=== PATIENT | female | born 1985 | race Caucasian/White ===

== ENCOUNTER 2018-09-08 10:39 | Outpatient (CLI) | payer OTHER, SELFPAY ==
[2018-09-11 13:55] LABS: TB Interpretation Negative (NEGAT); TB1 Ag minus Nil 0.03 IU/mL; TB2 Ag minus Nil 0.01 IU/mL
== END 2018-09-08 10:59 ==
PROVIDERS: PCP Family Medicine; Visit Provider Family Medicine
DX: Z11.1 Encounter for screening for respiratory tuberculosis (principal)
CPT/HCPCS: 36415; 86480

== ENCOUNTER 2020-01-01 16:58 | Outpatient (REF) | payer OTHER, SELFPAY ==
[2020-01-03 15:50] LABS: COVID-19 RT-PCR UVMMC Result Negative (Negative)
== END 2020-01-01 17:18 ==
LOC: NCHCN 16:58
PROVIDERS: PCP Family Medicine; Visit Provider Physician Assistant
DX: J02.9 Acute pharyngitis, unspecified (principal)
CPT/HCPCS: U0003

== ENCOUNTER 2020-03-07 16:40 | Outpatient (REF) | payer OTHER, SELFPAY ==
[2020-03-13 19:24] LABS: SARS-CoV-2 RNA Undetected (Undetected)
== END 2020-03-07 17:00 ==
LOC: NCHCN 16:40
PROVIDERS: PCP Family Medicine; Visit Provider Family Medicine
DX: Z20.828 Contact with and (suspected) exposure to other viral communicable diseases (principal)
CPT/HCPCS: U0003

== ENCOUNTER 2020-05-16 15:02 | Outpatient (REF) | payer OTHER, SELFPAY ==
[2020-05-19 02:13] LABS: Patient Race White; SARS-CoV-2 RNA Undetected (Undetected); SARS-CoV-2 Specimen Source Nasal
== END 2020-05-16 15:22 ==
LOC: NCHCN 15:02
PROVIDERS: PCP Family Medicine; Visit Provider Family Medicine
DX: Z20.828 Contact with and (suspected) exposure to other viral communicable diseases (principal)
CPT/HCPCS: U0003

== ENCOUNTER 2020-07-09 15:55 | Outpatient (REF) | payer OTHER, SELFPAY ==
[2020-07-11 15:17] LABS: SARS-CoV-2 RNA Source Nasal/Nares
[2020-07-11 15:19] LABS: SARS-CoV-2 RNA Not Detected (NotDetected)
== END 2020-07-09 16:15 ==
LOC: NCHCN 15:55
PROVIDERS: PCP Family Medicine; Visit Provider Nurse Practitioner Family
DX: Z20.828 Contact with and (suspected) exposure to other viral communicable diseases (principal)
CPT/HCPCS: U0003

== ENCOUNTER 2020-08-07 20:44 | Outpatient (REF) | payer SELFPAY ==
[2020-08-08 01:15] LABS: COVID-19 RT-PCR UVMMC Result Negative (Negative)
== END 2020-08-07 21:04 ==
LOC: NCHCN 20:44
PROVIDERS: PCP Family Medicine; Visit Provider Nurse Practitioner Family
DX: Z20.828 Contact with and (suspected) exposure to other viral communicable diseases (principal)
CPT/HCPCS: U0003

== ENCOUNTER 2020-08-24 07:25 | Outpatient (REF) | payer SELFPAY ==
[2020-08-24 20:45] LABS: COVID-19 RT-PCR UVMMC Result Negative (Negative)
== END 2020-08-24 07:45 ==
LOC: NCHCN 07:25
PROVIDERS: PCP Family Medicine; Visit Provider Nurse Practitioner Family
DX: Z20.828 Contact with and (suspected) exposure to other viral communicable diseases (principal)
CPT/HCPCS: U0003

== ENCOUNTER 2020-10-07 20:54 | Outpatient (REF) | payer SELFPAY ==
[2020-10-09 14:39] LABS: COVID-19 RT-PCR UVMMC Result Negative (Negative)
== END 2020-10-07 20:55 | disposition home or self-care (01) ==
LOC: NCHCN 20:54
PROVIDERS: PCP Family Medicine; Visit Provider Family Medicine
DX: Z20.822 Contact with and (suspected) exposure to COVID-19 (principal)
CPT/HCPCS: U0003

== ENCOUNTER 2023-06-16 10:20 | Outpatient (CLI) | payer OTHER, SELFPAY ==
[2023-06-16 13:32] LABS: HCT 37.4 % (36.0-46.0); HGB 12.4 g/dL (11.2-15.7); MCH 30.5 pg (27.0-33.0); MCHC 33.2 % (32.0-36.0); MCV 92 fL (80-95); MPV 9.8 fL (8.0-11.0); Platelet Count 192 10^3/uL (130-400); RBC 4.06 10^6/uL (3.93-5.22); RDW 12.4 % (11.7-14.6); RDW-SD 42.2 fL; WBC 4.88 10^3/uL (4.4-10.8)
[2023-06-16 15:19] LABS: ALT 22 U/L (14-59); AST 15 U/L (15-37); Albumin 4.1 g/dL (3.4-5.0); Alkaline Phosphatase 49 U/L (46-116); Anion Gap 11.5 mmol/L (3-11); BUN 13 mg/dL (7-18); Bilirubin, Total 0.4 mg/dL (0.2-1.0); CO2 24.5 mmol/L (21.0-32.0); CREATININE 0.7 mg/dL (0.55-1.02); Calcium 9.4 mg/dL (8.5-10.1); Calculated LDL 85 mg/dL (<100); Chloride 102 mmol/L (98-107); Cholesterol 193 mg/dL (<200); Estimated GFR 112.75 (mL/min/1.73m2); Glucose 92 mg/dL (74-106); HDL Cholesterol 98 mg/dL (40-60); Potassium 4.1 mmol/L (3.5-5.1); Sodium 138 mmol/L (136-145); TSH 1.22 uIU/mL (0.36-3.74); Total Protein 7.3 g/dL (6.4-8.2); Triglyceride 51 mg/dL (<150)
[2023-06-16 15:33] LABS: Vitamin D 25 Total 35.5 ng/mL (30-100)
[2023-06-17 10:34] LABS: Lyme Ab w Rflx to Lyme Confirm Negative (Negative)
[2023-06-21 11:48] LABS: TB Interpretation Negative (Negative); TB1 Ag minus Nil 0.01 IU/ml; TB2 Ag minus Nil 0.02 IU/mL
== END 2023-06-16 10:21 | disposition home or self-care (01) ==
LOC: LBO 10:32
PROVIDERS: PCP Family Medicine; Visit Provider Family Medicine
DX: Z11.1 Encounter for screening for respiratory tuberculosis (principal); R53.83 Other fatigue; E55.9 Vitamin D deficiency, unspecified; F33.0 Major depressive disorder, recurrent, mild; E78.5 Hyperlipidemia, unspecified
CPT/HCPCS: 36415; 80053; 80061; 82306; 85027; 84443; 86480; 86618

== ENCOUNTER → 2023-11-04 00:57 | Outpatient (CLI) | payer OTHER, SELFPAY ==
--- NOTE | 2023-11-04 | DI.MAMMO_ITS ---
Exam(s) MAMMO SCREENING EXAM: MAMMO SCREENING CLINICAL HISTORY: SCREENING MAMMO FOR BREAST CANCER Z12.31 TECHNIQUE: Bilateral full field digital CC and MLO mammographic images were obtained with 3D tomosyn thesis and utilizing computer aided detection (CAD). COMPARISON: This is a baseline examination. FINDINGS: Masses/Architectural Distortion: None seen. Microcalcifications: No suspicious pleomorphic-type are seen. Skin Thickening/Nipple Retraction: None. IMPRESSION: 1. No significant interval change with no specific features of malignancy noted. 2. Unless there is more urgent need, screening mammography is recommended, as per [employer] guidelines. BI-RADS Category 1 - Negative Breast Density - Category D - Extremely dense Breast density category C or D implies that the patient has dense breast tissue. Dense breast tissue is very common and is not abnormal but dense breast tissue can make it harder to find cancer on a ma mmogram. Also, dense breast tissue may increase their breast cancer risk. This information about the result of the mammogram report was provided to the patient to raise their awareness. Use this report when you speak with the patient about their risks for breast cancer, which includes their family hist ory. At that time, you may recommend for more screening tests (Ultrasound or MRI) as they might be us eful based on their risk. A negative radiographic report should not delay biopsy if a dominant or clinically suspicious mass is present. Up to ten percent of cancers are not identified on mammography. A negative report may reinforce clinical impression. Adenosis and dense breasts may obscure an underlying neoplasm. False positive reports average 6 to 10%. Patient will receive a letter notifying them of these results.
== END ==
PROVIDERS: PCP Family Medicine; Visit Provider Family Medicine
DX: Z12.31 Encounter for screening mammogram for malignant neoplasm of breast (principal)
CPT/HCPCS: 77063; 77067

== ENCOUNTER 2024-01-05 15:44 | Outpatient (CLI) | payer OTHER, SELFPAY ==
[2024-01-09 14:26] LABS: TB Interpretation Negative (Negative); TB1 Ag minus Nil 0.03 IU/ml; TB2 Ag minus Nil 0.02 IU/mL
== END 2024-01-05 15:45 | disposition home or self-care (01) ==
LOC: LBO 15:48
PROVIDERS: PCP Family Medicine; Visit Provider Family Medicine
DX: Z11.1 Encounter for screening for respiratory tuberculosis (principal)
CPT/HCPCS: 36415; 86480

== ENCOUNTER 2024-07-05 03:38 | Outpatient (CLI) | payer OTHER, SELFPAY ==
[2024-07-05 08:24] LABS: Abs Immature Grans 0.02 10^3/uL (0.0-0.06); Absolute Basophil Count 0.03 10^3/uL (0.0-0.2); Absolute Eosinophil Count 0.11 10^3/uL (0.0-0.7); Absolute Lymphocyte Count 1.99 10^3/uL (1.2-3.4); Absolute Monocyte Count 0.48 10^3/uL (0.1-0.8); Absolute Neutrophil Count 2.12 10^3/uL (1.2-6.7); Basophils % 0.6 %; Eosinophils % 2.3 %; HCT 37.4 % (36.0-46.0); HGB 12.3 g/dL (11.2-15.7); Immature Grans % 0.4 %; Lymphocytes % 41.9 %; MCH 30.9 pg (27.0-33.0); MCHC 32.9 % (32.0-36.0); MCV 94 fL (80-95); MPV 9.8 fL (8.0-11.0); Monocytes % 10.1 %; Neutrophils % 44.7 %; Platelet Count 181 10^3/uL (130-400); RBC 3.98 10^6/uL (3.93-5.22); RDW 12.5 % (11.7-14.6); RDW-SD 43.8 fL; WBC 4.75 10^3/uL (4.4-10.8)
[2024-07-05 09:11] LABS: ALT 16 U/L (14-59); AST 17 U/L (15-37); Albumin 3.9 g/dL (3.4-5.0); Alkaline Phosphatase 46 U/L (46-116); Anion Gap 7.3 mmol/L (3-11); BUN 9 mg/dL (7-18); Bilirubin, Total 0.67 mg/dL (0.2-1.0); CO2 27.7 mmol/L (21.0-32.0); Calcium 9.2 mg/dL (8.5-10.1); Calculated LDL 64 mg/dL (<100); Chloride 107 mmol/L (98-107); Cholesterol 174 mg/dL (<200); Estimated GFR 73.04 (mL/min/1.73m2); Glucose 94 mg/dL (74-106); HDL Cholesterol 104 mg/dL (40-60); Potassium 4.3 mmol/L (3.5-5.1); Sodium 142 mmol/L (136-145); Total Protein 6.8 g/dL (6.4-8.2); Triglyceride 34 mg/dL (<150); Vitamin D 25 Total 41.3 ng/mL (30-100)
== END 2024-07-05 03:39 | disposition home or self-care (01) ==
LOC: LBO 03:38
PROVIDERS: PCP Family Medicine; Visit Provider Family Medicine
DX: Z00.00 Encounter for general adult medical examination without abnormal findings (principal); E55.9 Vitamin D deficiency, unspecified
CPT/HCPCS: 36415; 80053; 80061; 82306; 85025

== ENCOUNTER 2024-09-13 15:57 | Emergency (ER) | payer OTHER, SELFPAY ==
[2024-09-13 15:59] VITALS: BP 179/98; PULSE 102; RESP 23; TEMP 37.2; O2SAT 99
[2024-09-13 16:06] VITALS: BP 179/98; PULSE 102; RESP 23; TEMP 37.2; O2SAT 99
[2024-09-13 16:11] VITALS: RESP 18
--- NOTE | 2024-09-13 16:12 | W.ED.GENAD ---
Discharge Plan Disposition Patient Disposition: Home Condition: Stable Discharge Details Clinical Impression: Shortness of breath Primary Care Provider: Chapo Jonas ED Provider: Yaima Sandhu Home Meds and New Rx's Prescriptions: Continued Mirena 21 mcg/24 hr (8 yrs) 52 mg intrauterine device 1 device intrauterine ONCE Rx Instructions: as a single dose bupropion HCl 75 mg tablet 75 mg PO DAILY Rx Instructions: administer 6 hours apart budesonide-formoterol [Symbicort] 80-4.5 mcg/actuation HFA aerosol inhaler 1 inh inhalation ONCE azithromycin 250 mg tablet See Rx Instructions PO .COMPLEX Qty: 6 0RF Rx Instructions: For 250 mg dose pack: take 500 mg today (day 1), then 250 mg for 4 days (days 2-5) PO amoxicillin 500 mg capsule 1,000 mg PO TID 7 Days Qty: 42 0RF albuterol sulfate 90 mcg/actuation HFA aerosol inhaler 2 puff inhalation Q6H PRN (Reason: shortness of breath or wheezing) Qty: 8.5 0RF Ubrelvy 100 mg tablet 100 mg PO ONCE Qty: 10 3RF Rx Instructions: as a single dose; may repeat once in >=2 hours after first dose if needed CBD 1 cap PO DAILY melatonin 3 mg capsule 3 mg PO HS PRN Alive Calcium-Vitamin D3 260 mg calcium- 25 mcg-50 mg tablet,chewable 1 tab PO DAILY Nurtec ODT 75 mg tablet,disintegrating 75 mg PO ONCE PRN Patient Comments: Take 1 tablet by mouth once as needed for migraine headache; as a single dose Discharge Instructions Instructions: Shortness of Breath, Adult ED, Upper Respiratory Infection ED Additional Instructions: Your workup is unremarkable today. Please continue to take the antibiotics as previously prescribed. D-dimer within normal limits, troponin also within normal limits negative COVID flu RSV negative strep swab. Please take Tylenol or Ibuprofen with food every 4-6 hours as needed for pain and swelling. Follow up with primary care provider in 3-5 days. Return to ED sooner if any worsening or concerns. Thank you for allowing us to care for you today. Referrals: Chapo Jonas [Primary Care Provider] - Return if symptoms worsen HPI General Mode of arrival: ambulatory. Date/Time Provider Initiated Documentation: 09/13/24 15:59. Limitations to Documentation: no limitations. Information obtained by: patient, RN notes reviewed and old records reviewed. HPI Narrative: 38-year-old female presents to the ER with chief complaint of shortness of breath which has been ongoing for the last week and a half. Got worse last couple of days. She reports near syncopal episode and seeing stars with skiing today. She was seen in urgent care chest x-ray and was placed on azithromycin which she is taking 2 days of. She uses her inhaler the last few days. She does not have a history of asthma. She also reports increased fatigue. Past medical history includes lipidemia, tension, ovarian cyst removal. Does have a dry bronchospastic cough, lungs are clear to auscultation bilaterally, she is slightly tachycardic and hypertensive upon arrival. Related Data Home Medications ?Medication ?Instructions ?Recorded ?Confirmed CBD 1 cap PO DAILY 05/26/22 09/13/24 calcium 260 mg (phos,tribasic)-D3 1 tab PO DAILY 05/26/22 09/13/24 25 mcg-herbal 50 mg chewable tablet (Alive Calcium-Vitamin D3) melatonin 3 mg capsule 3 mg PO HS PRN 05/26/22 09/13/24 levonorgestrel 21 mcg/24 hr (up to 1 device intrauterine ONCE 02/23/24 09/13/24 8 years) 52 mg intrauterine device (Mirena) bupropion HCl 75 mg tablet 75 mg PO DAILY 05/22/24 09/13/24 ubrogepant 100 mg tablet (Ubrelvy) 100 mg PO ONCE #10 tabs 08/14/24 09/13/24 azithromycin 250 mg tablet See Rx Instructions PO .COMPLEX #6 09/12/24 09/13/24 tabs budesonide-formoterol HFA 80 1 inh inhalation ONCE 09/12/24 09/13/24 mcg-4.5 mcg/actuation aerosol inhaler (Symbicort) albuterol sulfate 90 mcg/actuation 2 puff inhalation Q6H PRN 09/13/24 09/13/24 aerosol inhaler shortness of breath or wheezing #8.5 grams amoxicillin 500 mg capsule 1,000 mg (2 x 500 mg) PO TID 7 09/13/24 09/13/24 days #42 caps rimegepant 75 mg disintegrating 75 mg PO ONCE PRN 09/13/24 09/13/24 tablet (Nurtec ODT) Previous Rx's ?Medication ?Instructions ?Recorded ubrogepant 100 mg tablet (Ubrelvy) 100 mg PO ONCE #10 tabs 08/14/24 azithromycin 250 mg tablet See Rx Instructions PO .COMPLEX #6 09/12/24 tabs albuterol sulfate 90 mcg/actuation 2 puff inhalation Q6H PRN 09/13/24 aerosol inhaler shortness of breath or wheezing #8.5 grams amoxicillin 500 mg capsule 1,000 mg (2 x 500 mg) PO TID 7 09/13/24 days #42 caps Allergies Allergy/AdvReac Type Severity Reaction Status Date / Time No Known Allergies Allergy Unverified 09/13/24 16:07 General Stated Complaint: SOB KRIS: 3 Review of Systems All systems reviewed & are unremarkable except as noted in HPI and below Cardiovascular Cardiovascular: Reports dyspnea and Reports dyspnea on exertion Respiratory Respiratory: Reports cough, Reports dyspnea, Reports dyspnea on exertion and Reports wheezing Allergic/Immunologic Allergic/Immunologic: Reports wheezing Exam Narrative Exam Narrative: Constitutional: Alert and oriented x3. Appears stated age. Normal body habitus. Head: Normocephalic, no trauma. Eyes: Pupils PERRL, Red reflex noted, EOM's intact. Eyelids symmetrical without lesions, discharge, or swelling. ENT: Bilateral TM's WNL, External ear normal to inspection, no mastoid TTP, swelling, or erythema, Nasal turbinates WNL, no nasal discharge. Normal dentition, Posterior pharynx WNL, no exudate. Chest: RRR, Normal S1, S2, distal pulses intact. Resp: Lungs clear to auscultation bilaterally, no wheezes, rales, or rhonchi. Diminished in the bases. Dry bronchial cough noted. Abdomen: Soft, non-distended, Normoactive bowel sounds all 4 quads. Musculoskeletal: Normal gait, Moves all 4 extremities without difficulty. Skin: No suspicious rashes or lesions. Capillary refill less than 2 sec. Neurologic: Cranial nerves II-XII intact. Alert and oriented x 3. Motor: No deficits noted. Sensory: Intact bilaterally all 4 extremities. Hematologic/Lymphatic: No ecchymosis, no lymphadenopathy. Course Vital Signs Vital signs: Vital Signs Temperature 37.2 C 09/13/24 15:59 Pulse 102 H 09/13/24 15:59 Respiratory Rate 23 09/13/24 15:59 Blood Pressure 179/98 H 09/13/24 15:59 Pulse Oximetry 99 09/13/24 15:59 Temperature 37.2 C 09/13/24 16:06 Temperature Source Tympanic 09/13/24 16:06 Pulse 102 H 09/13/24 16:06 Respiratory Rate 23 09/13/24 16:06 Blood Pressure 179/98 H 09/13/24 16:06 Blood Pressure Position Sitting 09/13/24 16:06 Pulse Oximetry 99 09/13/24 16:06 Oxygen Delivery Method Room Air 09/13/24 16:06 Oxygen Flow Rate 0 09/13/24 16:06 Medical Decision Making 38-year-old female presents to the ER with chief complaint of shortness of breath which has been ongoing for the last week and a half. Got worse last couple of days. She reports near syncopal episode and seeing stars with skiing today. She was seen in urgent care chest x-ray and was placed on azithromycin which she is taking 2 days of. She uses her inhaler the last few days. She does not have a history of asthma. She also reports increased fatigue. Past medical history includes lipidemia, tension, ovarian cyst removal. Does have a dry bronchospastic cough, lungs are clear to auscultation bilaterally, she is slightly tachycardic and hypertensive upon arrival. Fluid swab, strep swab ordered, CT chest rule out PE, however this patient does have low risk factors. CBC CMP Patient is refusing CT imaging at this time. D-dimer is negative. On reevaluation heart rate has improved and is at 86. I did discuss her negative workup with her. She is requesting an EKG which was ordered. A troponin was added onto her workup. Troponin negative. Instructed to follow-up with primary care provider. At this time no evidence for intra pulmonary or cardiac abnormality. Patient's vital signs have improved however she did remain hypertensive. Patient was given dexamethasone 6mg PO prior to DC. This text was generated using [employer] system, please disregard any oddities of phrase or misspellings. Medical Records Medical records reviewed: Yes I reviewed the patient's medical records. Lab Data Lab results reviewed: Yes I reviewed the patient's lab results. Labs: 09/13/24 16:17 Tonsil - Not Specified Group A Streptococcus Culture - Pending Laboratory Tests Range/Units 09/13/24 09/13/24 16:29 16:30 WBC (4.4-10.8) 10^3/uL 7.18 RBC (3.93-5.22) 10^6/uL 4.25 Hgb (11.2-15.7) g/dL 13.2 Hct (36.0-46.0) % 39.5 MCV (80-95) fL 93 MCH (27.0-33.0) pg 31.1 MCHC (32.0-36.0) % 33.4 RDW (11.7-14.6) % 12.3 Plt Count (130-400) 10^3/uL 261 MPV (8.0-11.0) fL 9.7 Immature Gran % % 0.3 Neutrophils % % 57.9 Lymphocytes % % 30.2 Monocytes % % 9.7 Eosinophils % % 1.3 Basophils % % 0.6 Nucleated RBC % (0.0-0.3) % 0.0 Absolute Neutrophils (1.2-6.7) 10^3/uL 4.16 Absolute Lymphocytes (1.2-3.4) 10^3/uL 2.17 Absolute Monocytes (0.1-0.8) 10^3/uL 0.70 Absolute Eosinophils (0.0-0.7) 10^3/uL 0.09 Absolute Basophils (0.0-0.2) 10^3/uL 0.04 PT (9.1-11.1) sec 10.2 INR (0.9-1.1) 1.0 APTT (20.6-30.2) sec 25.3 D-Dimer (<500) ng/mlFEU 170 VBG pH (7.31-7.41) 7.41 VBG pCO2 (41-51) mmHg 41 VBG pO2 mmHg 45 VBG HCO3 (23-28) mmol/L 26 VBG Total CO2 (24-29) mmol/L 23 L VBG O2 Saturation % 82 VBG Base Excess (-2-3) mmol/L 1 Sodium (136-145) mmol/L 139 Potassium (3.5-5.1) mmol/L 3.9 Chloride (98-107) mmol/L 105 Carbon Dioxide (21.0-32.0) mmol/L 27.5 Anion Gap (3-11) mmol/L 6.5 BUN (7-18) mg/dL 11 Creatinine (0.55-1.02) mg/dL 0.9 Est GFR (CKD-EPI 2020) (mL/min/1.73m2) 82.88 Glucose (74-106) mg/dL 92 Calcium (8.5-10.1) mg/dL 8.6 Magnesium (1.8-2.4) mg/dL 1.9 Total Bilirubin (0.2-1.0) mg/dL 0.44 AST (15-37) U/L 17 ALT (14-59) U/L 19 Alkaline Phosphatase (46-116) U/L 58 Total Protein (6.4-8.2) g/dL 7.4 Albumin (3.4-5.0) g/dL 4.0 Serum HCG, Qual Negative COVID-19 Source NASOPHARYNX SARS-CoV-2 (PCR) (Negative) Negative Influenza Type A (PCR) (Negative) Negative Influenza Type B (PCR) (Negative) Negative RSV (PCR) (Negative) Negative Quality:SDOH Health Related Social Needs: No Data to Display PFSH All Active Problems (Updated 09/13/24 @ 19:10 by Yaima Sandhu NP) Shortness of breath (Acute) Neck pain without injury (Acute) Occipital headache (Acute) Impacted cerumen of left ear (Acute) Long COVID (Acute) Brain fog (Acute) Migraine headache without aura (Acute) Pyogenic granuloma (Acute) 11/23/2019. Right labia. Excised. Not sent to path IUD (intrauterine device) in place (Acute) 10/2019 Mirena IUD 11/2021. Changed to [place] Medical History Headache History of depression Anxiety HTN (hypertension) HLD (hyperlipidemia) Osteoporosis Impaired fasting glucose COPD (chronic obstructive pulmonary disease) Low TSH level Abnormal mammogram of left breast Impacted ear wax Pedal edema Lower extremity weakness Recurrent UTI Spider veins Near syncope Left foot pain Surgical History History of removal of ovarian cyst Family History Father Vertigo Hypertension Depression Mother Arthritis Arrhythmia Depression Mitral valve prolapse Maternal Grandmother Uterine cancer Dementia Diabetes Heart disease Sister GERD (gastroesophageal reflux disease) Maternal Grandfather Heart failure Peripheral vascular disease Social History Smoking/Tobacco Use Status: Never Smoking risk assessment performed?: Yes Alcohol Intake: never Drug use: Never Substance use type: does not use Household members: spouse and other Details: Vikki Education Level: other Details: Nurse practitioner, 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
--- OUTSIDE RECORDS SUMMARY | 2024-09-13 16:15 | XMS_ITS | Clinical Summary ---
Author Organization [facility] Address [address] [place] [address] Care Team Providers Care Concrete Mixer Operator Name Role Phone Chapo Jonas MD Primary Care Provider [phone] Allergies No known active allergies Medications melatonin 3 mg tablet Take 1 Tablet by mouth at bedtime. Active CANNABIDIOL, CBD, EXTRACT ORAL Take 50 mg by mouth daily. Active levonorgestrel (MIRENA) 20 mcg/24 hours (5 yrs) 52 mg IUD 1 Each by intrauterine route Once. Active ELDERBERRY FRUIT ORAL Take 1 Drop by mouth. Active omeprazole (PRILOSEC) 40 mg capsule Take 1 capsule by mouth daily. 30 capsule 3 2 Active Additional Information Patient not taking.Reported on 06/16/2023 albuterol 90 mcg/actuation inhaler Inhale 2 Puffs as directed every 4 hours as needed for Wheezing. 1 Each 3 2 Active Additional Information Patient not taking.Reported on 06/16/2023 estradioL (ESTRACE) 0.01 % (0.1 mg/gram) vaginal cream 3 Active NURTEC ODT 75 mg tablet,disinteg rating PRN 3 Active metoclopramide HCl (REGLAN) 10 mg tablet Take 1 Tablet by mouth 2 times daily as needed for Other (Nausea and vomiting). 4 Active predniSONE (DELTASONE) 10 mg tablet Take 1 Tablet by mouth daily. 4 Active buPROPion (WELLBUTRIN) 75 mg tablet Take 1 Tablet by mouth daily for 120 days. (OPOTEX) please - pt prefers thank you. 90 Tablet 3 4 10/06/19 25 Active Active Problems Problem Noted Date Diagnosed Date Pharyngitis 01/01/2020 Encounters Date Type Department Care Team Description 08/01/2024 16:56 EST - 08/01/2024 23:59 EST Hospital Encounter [facility] Secondary Reads [place] Discharge Disposition: Home or Self Care 07/11/2024 Lab Requisition [facility] Pathology & Laboratory Medicine - [address] [address] Janiya Prado PA Neoplasm of uncertain behavior of skin from Last 3 Months Immunizations Name Administration Dates Next Due Covid-19 mRNA Vaccine (MODER NA COVID-19) PF 0.5 ml IM (12 yrs+) 05/31/2024 Covid-19 mRNA Vaccine (PFIZE R COVID-19) PF 0.3 ml IM (12 yrs+) 06/05/2021,09/10/2020,08/18/2020 Covid-19 mRNA-LNP Mt ccine (PFIZER COVID-19) PF 0.3 mL IM (12 yrs+) 06/13/2023 Historical Influenza Vaccine, Unspecified 2019,05/30/2019,05/31/2017 Influenza Vaccine =>3yo Split IM 07/05/2018,05/30 Influenza Vaccine Quad (AFLU IVONE) PF 0.5 ml IM (3 yrs+) 05/03/2021,06/04/2020 Influenza Vaccine Quad PF 0. 5 ml IM (6 mos+) 06/13/2023 Tdap Vaccine =>7YO IM 10/28/2016 Surgical History Surgery Date Site/Laterality Comments OVARIAN CYST REMOVAL 07/2015 Medical History Medical History Date Comments Anxiety Depression Family History Medical History Relation Comments *Other(comment) Father Vertigo Depression Father Hypertension Father Heart Failure Maternal Grandfather Peripheral vascular disease Maternal Grandfather Cancer Maternal Grandmother Uterine Dementia Maternal Grandmother Diabetes Maternal Grandmother Heart Disease Maternal Grandmother Arrhythmia Mother Arthritis Mother Depression Mother Mitral valve prolapse Mother No Known Paternal Grandfather No Known Paternal Grandmother SHALINI disease Sister Relation Status Comments Father Alive Maternal Grandfather Maternal Grandmother Mother Alive Paternal Grandfather Paternal Grandmother Sister Alive Social History Tobacco Use Types Packs/Day Years Used Date Smoking Tobacco: Never Cigarettes Pipe Cigars Smokeless Tobacco: Never Alcohol Use Standard Drinks/Week Comments Yes 0 (1 standard drink = 0.6 oz pur e alcohol) Occasional PHQ-2 Answer Date Recorded PHQ-2 SUBTOTAL 1 05/26/2024 Interpersonal Safety Answer Date Record ed Physically Hurt Never 03/31/2020 Verbally Threaten Not on file 03/31/2020 Employment Answer Date Recorded Do you want help finding or keeping work or a job? I do not need or want help 05/26/2024 Financial Strain Answer Date Recorded How hard is it for you to pa y for the very basics like food, housing, medical care, and heating? Would you say it is: Not hard at all 05/26/2024 Living Situation Answer Date Recorded What is your living situation today? I have a [facility] place to live 05/26/[address] you li ve. Do you have problems with any of the following? None of the above 05/26/2024 Family & Community Support Answer Date Recorded If for any reason you need h elp with day-to-day activities such as bathing, preparing meals, shopping, managing finances, etc., do you get the help you need? I don't need any help 05/26/2024 How often do you feel lonely or isolated from those around you? Rarely 05/26/2024 Interpersonal Safety Answer Date Record ed How often does anyone, rony mello family and friends, physically hurt you? Never 05/26/2024 How often does anyone, rony mello family and friends, insult or talk down to you? Never 05/26/2024 How often does anyone, rony mello family and friends, threaten you with harm? Never 05/26/2024 How often does anyone, rony mello family and friends, scream or curse at you? Never 05/26/2024 Food Answer Date Recorded Within the past 12 months, y ou worried that your food would run out before you got money to buy more. Never true 05/26/2024 Within the past 12 months, t he food you bought just didn't last and you didn't have money to get more. Never true 05/26/2024 Transportation Answer Date Recorded In the past 12 months, has l ack of reliable transportation kept you from medical appointments, meetings, work or from getting things needed for daily living? No 05/26/2024 Utilities Answer Date Recorded In the past 12 months has th e electric, gas, oil, or water company threatened to shut off services in your home? No 05/26/2024 Education Answer Date Recorded Do you speak a language other than Spanish at [facility]? No 05/26/2024 Do you want help with school or training? For example, starting or completing job training or getting a high school diploma, GED or equivalent. No 05/26/2024 Physical Activity Answer Date Recorded In the last 30 days, other t alcocer the activities you did for work, on average, how many days per week did you engage in moderate exercise (like walking fast, running, jogging, dancing, swimming, biking, or other similar activities)? 5 2023 On average, how many minutes did you usually spend exercising at this level on one of those days? 60 05/26/2024 Comments Unknown Sex and Gender Information Value Date Recorded Sex Assigned at Not on file Legal Sex Female 14:58 EST Gender Identity Female 08/09/2019 13:13 EST Sexual Orientation Not on file Obstetrics History Last Filed Vital Signs Vital Sign Reading Time Taken Comments Blood Pressure 105/65 06/08/2024 0909 EDT Pulse 73 06/08/2024 0909 EDT Temperature 36.7 ??C (98.1 ??F) 07/11/2023 1529 EST Respiratory Rate 16 06/08/2024 0909 EDT Oxygen Saturation 100% 06/08/2024 0909 EDT Inhaled Oxygen Concentration - - Weight 59.7 kg (131 lb 9.6 oz) 06/08/2024 0909 E DT Height 175.3 cm (5' 9) 07/28/2021 1416 EST Body Mass Index 19.43 07/28/2021 1416 EST Plan of Treatment Upcoming Encounters Date Type Department Care Team (Late st Contact Info) Description 09/18/2024 9:45 EST Office Visit [facility] Family Medicine - [address] [address] Chapo Jonas MD [address] [place] [phone] 06/18/2025 9:00 EDT Office Visit [facility] [place] [address] [place] [address] Chapo Jonas MD [address] [place] [phone] Health Maintenance Due Date Last Done Comments Hepatitis C Screen 1983 HIV Screening 1999 Advance Directive 2001 Hepatitis B Vaccine (1 of 3 - 19+ 3-dose series) 2002 Cervical Cancer Screening 2004 Pap Smear (Cervical Cancer Screening) 2004 HPV/Cotest (Cervical Cancer Screening) 2013 Breast Cancer Screening 2023 Influenza Immunization (Adult) (#1) 2024 06/13/2023, 05/03/2021, 06/04/2020, Additional history exists COVID-19 Vaccine ( season) 2024 05/31/2024, 06/13/2023, 06/05/2021, Additional history exists Social Determinants Of Health (SDOH) 05/26/2025 05/26/2024 Depression Screening 06/08/2025 06/08/2024, 05/26/2024, 01/06/2024 Preventive Care Visit 06/08/2026 06/08/2024 , 07/28/2021, 08/10/2019 Tetanus (Adult) Immunization 10/28/2026 10/28/2016 Pertussis (Adult) Immunization Completed 10/28/2016 HPV Vaccines Aged Out No longer eligi ble based on patient's age to complete this topic Procedures Procedure Name Priority Date/Time Associated Diagnosis Comments US OUTSIDE IMAGES OTHER Routine 08/01/2024 16:57 EST SURGICAL PATHOLOGY Today 07/10/2024 15 :53 EST Neoplasm of uncertain behavior of skin from Last 3 Months Results * US OUTSIDE IMAGES OTHER (08/01/2024 16:57 EST) Narrative 08/01/2024 16:57 EST This is a non-reportable exam. us External Imaging IMG OTHER IMAGING ORDERABLES Fi nal Result * SURGICAL PATHOLOGY (07/10/2024 15:53 EST) Note to Patient The following pathology results have been interpreted by your pathologist and may be available to you before your health provider has had the opportunity to review them. Please allow time for your provider to receive these results and explore management options, if applicable. 07/12/2024 10:23 [facility] Final Diagnosis A. SKIN OF BACK, RIGHT INFERIOR UPPER, SHAVE BIOPSY: - Intradermal nevus. 07/12/2024 10:23 [facility] Attestation There was significant resident/fellow involvement in the diagnostic evaluation of this case. By the signature below, the attending physician certifies that they have personally conducted a gross and/or microscopic examination of the described specimens and rendered or confirmed the above diagnosis. 07/12/2024 10:23 [facility] at 1022 Clinical History Stuck on inflamed papule(s) with crust; DDx: Irritated seborrheic keratosis vs traumatized nevus; clinical diagnosis code: D48.5 07/12/2024 10:23 [facility] Gross Description A. Received in formalin labelled with proper patient identification (initials E, A) and right inferior upper back is a shave biopsy of muniz papule (0.8 x 0.7 x 0.5 cm). The specimen is trisected inked blue and entirely submitted in A1. KAUSHAL MUNROE DO 07/11/2024 13:43 07/12/2024 10:23 [facility] Resident/Shine w: Kaushal Munroe DO 07/12/2024 10:23 [facility] Performing Lab [facility] 07/12/2024 10:23 [facility] Scanned Images 07/12/2024 10:23 EST [facility] Tissue SPECIMEN FROM SKIN / Unknown 07/10/2024 15:53 EST 07/11/2024 10:31 EST us Janiya ALVARADO PATHOLOGY ORDERABLES Final Res ult [facility] [address] [place] [address] from Last 3 Months Insurance [employer] Care Teams Concrete Mixer Operator Relationship Specialty Start Date End Date Chapo Jonas MD [address] [place] [phone] PCP - General 07/25/19
--- OUTSIDE RECORDS SUMMARY | 2024-09-13 16:15 | XMS_ITS | Referral Summary ---
Author Organization [facility] Address [address] [place] [address] Care Team Providers Care Clock Repairer Name Role Phone Chapo Jonas MD Primary Care Provider [phone] Encounters Date Type Department Care Team Description 08/01/2024 16:56 EST - 08/01/2024 23:59 EST Hospital Encounter [facility] Secondary Reads [place] Discharge Disposition: Home or Self Care 07/11/2024 Lab Requisition [facility] Pathology & Laboratory Medicine - [facility] [address] [place] [address] Janiya Prado PA Neoplasm of uncertain behavior of skin from Last 3 Months Allergies No known active allergies Medications melatonin [...] Problem Noted Date Diagnosed Date Pharyngitis 01/01/2020 Immunizations Name Administration Dates Next Due Covid-19 mRNA Vaccine (MODER NA COVID-19) PF 0.5 ml IM (12 yrs+) 05/31/2024 Covid-19 mRNA Vaccine (PFIZE R COVID-19) PF 0.3 ml IM (12 yrs+) 06/05/2021,09/10/2020,08/18/2020 Covid-19 mRNA-LNP Ks ccine (PFIZER COVID-19) PF 0.3 mL IM (12 yrs+) 06/13/2023 Historical Influenza Vaccine, Unspecified 2019,05/30/2019,05/31/2017 Influenza Vaccine =>3yo Split IM 07/05/2018,05/30 Influenza Vaccine Quad (AFLU IVONE) PF 0.5 ml IM (3 yrs+) 05/03/2021,06/04/2020 Influenza Vaccine Quad PF 0. 5 ml IM (6 mos+) 06/13/2023 Tdap Vaccine =>7YO IM 10/28/2016 Social History Tobacco Use Types Packs/Day Years [...] your living situation today? I have a [facility] place to live 05/26/2024 Think about the [...] In the past 12 months has th [employer], [employer], oil, or water [employer] threatened to shut off services in your home? No 05/26/2024 Education Answer Date Recorded Do you speak a language other than Lao at [facility]? No 05/26/2024 Do you want help with [...] 13:13 EST Sexual Orientation Not on file Last Filed Vital Signs Vital Sign Reading [...] Body Mass Index 19.43 07/28/2021 1416 EST Functional Status * Because of a physical, mental, or emotional condition, does this person have difficulty doing errands alone such as visiting a doctor's office or shopping? Answer Date of Assessment Author No 07/28/2021 14:22 EST Mental Status * Because of a physical, mental, or emotional condition, does this person have serious difficulty concentrating, remembering, or making decisions? Answer Entry Date Author Yes 07/28/2021 14:22 EST Plan of Treatment Upcoming Encounters Date Type Department Care Team (Late st Contact Info) Description 09/18/2024 9:45 EST Office Visit [facility] Family Medicine - [place] [address] [place] [phone] Chapo Jonas MD [address] [place] [phone] 06/18/2025 9:00 EDT Office Visit [facility] Family Medicine - [place] [address] [place] [address] Chapo Jonas MD [address] [place] [phone] Procedures Procedure Name Priority Date/Time Associated Diagnosis [...] explore management options, if applicable. 07/12/2024 10:23 [facility] Final Diagnosis A. SKIN OF BACK, RIGHT INFERIOR UPPER, SHAVE BIOPSY: - Intradermal nevus. 07/12/2024 10:23 [facility] Attestation There was significant resident/fellow involvement in the diagnostic evaluation of this case. By the signature below, the attending physician certifies that they have personally conducted a gross and/or microscopic examination of the described specimens and rendered or confirmed the above diagnosis. 07/12/2024 10:23 [facility] at 1022 Clinical History Stuck on inflamed papule(s) with crust; DDx: Irritated seborrheic keratosis vs traumatized nevus; clinical diagnosis code: D48.5 07/12/2024 10:23 EST [facility] Gross Description A. Received in formalin labelled with proper patient identification (initials E, A) and right inferior upper back is a shave biopsy of muniz papule (0.8 x 0.7 x 0.5 cm). The specimen is trisected inked blue and entirely submitted in A1. KAUSHAL MUNROE DO 07/11/2024 13:43 07/12/2024 10:23 EST [facility] Resident/Shine w: Kaushal Munroe DO 07/12/2024 10:23 EST [facility] Performing Lab [facility] 07/12/2024 10:23 EST [facility] Scanned Images 07/12/2024 10:23 EST [facility] Tissue SPECIMEN FROM SKIN / Unknown 07/10/2024 15:53 EST 07/11/2024 10:31 EST us Janiya ALVARADO PATHOLOGY ORDERABLES Final Res ult [facility] [address] [place] [address] from Last 3 Months Insurance [facility] [employer] Care Teams Clock Repairer Relationship Specialty Start Date End Date Chapo Jonas MD [address] [place] [phone] PCP - General 07/25/19
--- OUTSIDE RECORDS SUMMARY | 2024-09-13 16:16 | XMS_ITS | Encounter Summary ---
Author Organization [facility] Address [address] [place] [address] Care Team Providers Care Recycling Director Name Role Phone Chapo Jonas MD Primary Care Provider [phone] Reason for Visit * Reason Onset Date Comments Medications Refill 04/13/2022 Encounter Details Date Type Department Care Team (Late st Contact Info) Description 04/13/2022 Refill [facility] Family Medicine [facility] [address] [place] [address] Chapo Jonas MD [address] [place] [phone] Medications Refill Social History Tobacco Use Types Packs/Day Years Used Date Smoking Tobacco: Never Cigarettes Pipe Cigars Smokeless Tobacco: Never Alcohol Use Standard Drinks/Week Comments Yes 0 (1 standard drink = 0.6 oz pur e alcohol) Occasional PHQ-2 Answer Date Recorded PHQ-2 SUBTOTAL 3 07/28/2021 Interpersonal Safety Answer Date Record ed Physically Hurt Never 03/31/2020 Verbally Threaten Not on file 03/31/2020 Comments Unknown Sex and Gender Information Value Date Recorded Sex Assigned at Not on file Legal Sex Female 14:58 EST Gender Identity Female 08/09/2019 13:13 EST Sexual Orientation Not on file documented as of this encounter Functional Status * Because of a physical, mental, or emotional condition, does this person have difficulty doing errands alone such as visiting a doctor's office or shopping? Answer Date of Assessment Author No 07/28/2021 14:22 EST documented as of this encounter Mental Status * Because of a physical, mental, or emotional condition, does this person have serious difficulty concentrating, remembering, or making decisions? Answer Entry Date Author Yes 07/28/2021 14:22 EST documented in this encounter Ordered Prescriptions Prescription Sig Dispense Quantity Refills Last Filled Start Date End Date metoclopramide HCl (REGLAN) 10 mg tablet Take 1 Tablet by mouth 2 times daily. 10 Tablet 3 04/13/2022 04/22/2022 documented in this encounter Miscellaneous Notes * Telephone Encounter - Awa Mcneal RN - 04/19/2022 1108 EDT Received fax from [facility] to refill Metoclopramide. Already sent on 04/13/22 to [facility], per Pt's request. * Telephone Encounter - Sandra Hollins RN - 04/13/2022 1652 EDT Mason, In Dr. Bauer absence can you please send. * Telephone Encounter - Sandra Hollins RN - 04/13/2022 1641 EDT Jen does not have a f/u visit scheduled so unable to send. Lmtcb. rx pending for your review. * Telephone Encounter - Sandra Hollins RN - 04/13/2022 1421 EDT Left message for a call back to find out what pharmacy she would like the med filled at. Please schedule for annual physical on return call. * Telephone Encounter - Marlena Aparicio - 04/13/2022 1308 EDT Pt called to report [facility] in [place] reportedly sent a fax to request a refill of her Reglan last (04/08) or Tuesday (04/09). Pt went back to pharmacy today to peanut picker refill and pharmacy told her they had not received anything yet. I did not see any Zandra or faxes for this medication. Pt requests if refill cannot be done within a couple hours to call into [facility] ([phone]) instead of [facility] [place]. Please advise. documented in this encounter Plan of Treatment Upcoming Encounters Date Type Department Care Team (Late st Contact Info) Description 09/18/2024 9:45 EST Office Visit [address] [address] Chapo Jonas MD [address] [place] [phone] 06/18/2025 9:00 EDT Office Visit [address] [address] Chapo Jonas MD [address] [place] [phone] documented as of this encounter Visit Diagnoses Not on filedocumented in this encounter Discontinued Medications Medication Sig Discontinue Reason Start Date End Da te metoclopramide HCl (REGLAN) 10 mg tablet Take 1 Tablet by mouth 2 times daily. Reorder 02/27/2021 04/13/2022 documented as of this encounter Care Teams Recycling Director Relationship Specialty Start Date End Date Chapo Jonas MD [address] [place] [phone] PCP - General 07/25/19 documented as of this encounter
--- OUTSIDE RECORDS SUMMARY | 2024-09-13 16:16 | XMS_ITS | Encounter Summary ---
Author Organization [facility] Address [address] [place] [address] Care Team Providers Care Stamp Pad Maker Name Role Phone Chapo Jonas MD Primary Care Provider Reason for Visit * Reason Comments Annual Exam Encounter Details Date Type Department Care Team (Late st Contact Info) Description 08/10/2019 14:00 EST Office Visit [facility] Family Medicine - [place] [address] [place] [address] Chapo Jonas MD [address] [place] [address] [phone] Annual physical exam (Primary Dx) Social History Tobacco Use Types Packs/Day Years Used Date Smoking Tobacco: Never Smokeless Tobacco: Never Comments Unknown Sex and Gender Information Value Date Recorded Sex Assigned at Not on file Legal Sex Female 14:58 EST Gender Identity Female 08/09/2019 13:13 EST Sexual Orientation Not on file documented as of this encounter Last Filed Vital Signs Vital Sign Reading Time Taken Comments Blood Pressure 110/62 08/10/2019 1412 EST Pulse 80 08/10/2019 1412 EST Temperature - - Respiratory Rate 16 08/10/2019 1412 EST Oxygen Saturation - - Inhaled Oxygen Concentration - - Weight 57.2 kg (126 lb 1.6 oz) 08/10/[address] Height 172.7 cm (5' 8) 08/10/2019 1412 EST Body Mass Index 19.17 08/10/2019 1412 EST documented in this encounter Progress Notes * Chapo Jonas MD - 08/10/2019 1400 EST Subjective: Patient ID: Breanna Cruz is an 33 y.o. female. Chief Complaint Patient presents with ??? Annual Exam HPI Doing well. 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 There is no problem list on file for this patient. History reviewed. No pertinent past medical history. Current Outpatient Medications on File Prior to Visit Medication Sig Dispense Refill ??? CANNABIDIOL, CBD, EXTRACT ORAL Take 50 mg by mouth daily. ??? ELDERBERRY FRUIT ORAL Take 1 Drop by mouth. ??? levonorgestrel (MIRENA) 20 mcg/24 hours (5 yrs) 52 mg IUD 1 Each by intrauterine route once. ??? melatonin 3 mg tablet Take 1 Tab by mouth at bedtime. ??? UNABLE TO FIND Other medication - -, Sig: Ashley tonic (urbon moonshine) 2-3 mL ? ? UNABLE TO FIND Hair, Skin, & Nails Gummies Multiple Vitamins tablet, chewable, Si tab(s) chewed once a day ??? UNABLE TO FIND Other medication - -, Sig: Lions natty tincture 2 drops ??? UNABLE TO FIND Other medication - -, Sig: Alive calcium 4 D gummy ??? UNABLE TO FIND Other medication - -, Sig: Alive multi gummy No current facility-administered medications on file prior to visit. No Known Allergies Social Social History Tobacco Use ??? Smoking status: Never Smoker ??? Smokeless tobacco: Never Used Substance Use Topics ??? Alcohol use: Not on file ??? Drug use: Not on file Review of Systems Constitutional: Negative. HENT: Negative. Eyes: Negative. Respiratory: Negative. Cardiovascular: Negative. Gastrointestinal: Negative. Genitourinary: Negative. Musculoskeletal: Negative. Skin: Negative. Neurological: Negative. Endo/Heme/Allergies: Negative. Psychiatric/Behavioral: Negative. All other systems reviewed and are negative. Objective: BP 110/62 (BP Cuff Sizes: Adult, regular) Pulse 80 Resp 16 Ht 172.7 cm (68) Wt 57.2 kg (126 lb 1.6 oz) BMI 19.17 kg/m?? Lab Results Component Value Date CHOL 170 08/04/2018 HDL 106 (H) 08/04/2018 TRIG 42 08/04/2018 CHOLHDL 1.6 08/04/2018 Lab Results Component Value Date CREATININE 0.77 08/04/2018 Lab Results Component Value Date NA 137 08/04/2018 K 4.4 08/04/2018 CL 102 08/04/2018 CO2 26 08/04/2018 Physical Exam HENT: EOMI, PERRLA Nose: Nose normal. Mouth/Throat: Oropharynx is clear. Eyes: Pupils are equal, round, and reactive to light. Neck: Normal range of motion. Cardiovascular: Normal rate, regular rhythm and normal heart sounds. Pulmonary/Chest: Effort normal and breath sounds normal. Musculoskeletal: Normal range of motion. Neurological:alert. Skin: Skin is warm. Psychiatric: normal mood and affect. A letter ID that is valid in this context was not selected. Assessment: Healthy. Recent [place] - normal exam and spleen. Will plan to check CBC/CMP/TSH/lipids in , after insurance resets. She is agreeable. Plan: There are no diagnoses linked to this encounter. No follow-ups on file. documented in this encounter Plan of Treatment Upcoming Encounters Date Type Department Care Team (Late st Contact Info) Description 09/18/2024 9:45 EST Office Visit [address] [address] Chapo Jonas MD [address] [place] [address] [phone] 06/18/2025 9:00 EDT Office Visit [address] [address] Chapo Jonas MD [address] [place] [address] [phone] documented as of this encounter Visit Diagnoses Diagnosis Annual physical exam- Primary Routine general medical examination at a health care facility documented in this encounter Care Teams Stamp Pad Maker Relationship Specialty Start Date End Date Chapo Jonas MD [address] [place] [phone] PCP - General 07/25/19 documented as of this encounter
--- OUTSIDE RECORDS SUMMARY | 2024-09-13 16:16 | XMS_ITS | Encounter Summary ---
Author Organization [facility] Address [address] [place] [address] Care Team Providers Care Personnel Worker Name Role Phone Chapo Jonas MD Primary Care Provider [phone] Encounter Details Date Type Department Care Team (Late st Contact Info) Description 06/16/2023 Lab Requisition [facility] Pathology & Laboratory Medicine - [facility] [address] [place] [address] Outr Resulting Lab, Provider Social History Tobacco Use Types Packs/Day Years [...] 07/28/2021 14:22 EST documented in this encounter Plan of Treatment Upcoming Encounters Date Type Department Care Team (Late st Contact Info) Description 09/18/2024 9:45 EST Office Visit [address] [address] Chapo Jonas MD [address] [place] [address] [phone] 06/18/2025 9:00 EDT Office Visit [address] [phone] Chapo Jonas MD [address] [place] [address] [phone] documented as of this encounter Procedures Procedure Name Priority Date/Time Associated Diagnosis Comments QUANTIFERON MITOGEN (PERFORMABLE) Today 06/16/2023 13:20 EDT QUANTIFERON TB2 (PERFORMABLE) Today 06/16/2023 13:20 EDT QUANTIFERON TB1 (PERFORMABLE) Today 06/16/2023 13:20 EDT QUANTIFERON NIL (PERFORMABLE) Today 06/16/2023 13:20 EDT QUANTIFERON INTERPRETATION (PERFORMABLE) Today 06/16/2023 13:20 EDT QUANTIFERON TB GOLD PLUS Routine 06/16/2023 13:20 EDT documented in this encounter Results * QUANTIFERON INTERPRETATION (PERFORMABLE) (06/16/2023 13:20 EDT) Quantiferon Interpretation Negative Negative 06/21/2023 11:42 EDT [facility] Comment:No interferon-gamma response to M. tuberculosis antigens was detected. ??Infection with M. tuberculosis is unlikely. A single negative result does not exclude infection with M. tuberculosis. ??In patients at high risk for M. tuberculosis infection, a second test should be considered. TB1 Ag minus Nil 0.01 IU/ml 06/21/20 11:42 EDT [facility] TB2 Ag minus Nil 0.02 IU/mL 06/21/20 11:42 EDT [facility] Blood VENOUS BLOOD / Unknown 06/16/2023 13:20 EDT 06/21/2023 8:56 EDT Narrative [facility] - 06/21/2023 11:42 EDT Results were obtained with the Qiagen QuantiFERON-TB Gold Plus CLIA. New platform in use 05/06/2021 us Provider Outr Resulting Lab IMMUNOLOGY AND SEROL OGY ORDERABLES Final Result Performing Organization Address City/[facility]/ZIP Co de Phone Number [facility] [address] [place] [address] * QUANTIFERON MITOGEN (PERFORMABLE) (06/16/2023 13:20 EDT) Blood VENOUS BLOOD / Unknown 06/16/2023 13:20 EDT 06/17/2023 17:54 EDT us Provider Outr Resulting Lab IMMUNOLOGY AND SEROL OGY ORDERABLES Final Result Performing Organization Address City/[facility] Co de Phone Number [facility] [address] [place] [phone] * QUANTIFERON TB2 (PERFORMABLE) (06/16/2023 13:20 EDT) Blood VENOUS BLOOD / Unknown 06/16/2023 13:20 EDT 06/17/2023 17:54 EDT us Provider Outr Resulting Lab IMMUNOLOGY AND SEROL OGY ORDERABLES Final Result Performing Organization Address City/[facility]/ZIP Co de Phone Number [facility] [address] [place] [phone] * QUANTIFERON TB1 (PERFORMABLE) (06/16/2023 13:20 EDT) Blood VENOUS BLOOD / Unknown 06/16/2023 13:20 EDT 06/17/2023 17:54 EDT us Provider Outr Resulting Lab IMMUNOLOGY AND SEROL OGY ORDERABLES Final Result Performing Organization Address [facility] Co de Phone Number [facility] [address] [place] [address] * QUANTIFERON NIL (PERFORMABLE) (06/16/2023 13:20 EDT) Blood VENOUS BLOOD / Unknown 06/16/2023 13:20 EDT 06/17/2023 17:54 EDT us Provider Outr Resulting Lab IMMUNOLOGY AND SEROL OGY ORDERABLES Final Result Performing Organization Address [facility] Co de Phone Number [facility] [address] [place] [address] documented in this encounter Visit Diagnoses Not on filedocumented in this encounter Care Teams Personnel Worker Relationship Specialty Start Date End Date Chapo Jonas MD [address] [place] [address] [phone] PCP - General 07/25/19 documented as of this encounter
--- OUTSIDE RECORDS SUMMARY | 2024-09-13 16:16 | XMS_ITS | Encounter Summary ---
Author Organization [facility] Address [address] [place] [address] Care Team Providers Care Radioisotope Technologist Name Role Phone Chapo Jonas MD Primary Care Provider [phone] Encounter Details Date Type Department Care Team (Late st Contact Info) Description 10/08/2020 Lab Requisition [facility] Pathology & Laboratory Medicine - [facility] [address] [place] [address] Outr Resulting Lab, Provider Social History Tobacco Use Types Packs/Day Years Used Date Smoking Tobacco: Never Smokeless Tobacco: Never Interpersonal Safety Answer Date Record ed Physically Hurt Never 03/31/2020 Verbally Threaten Not on file 03/31/2020 Comments Unknown Sex and Gender Information Value Date Recorded Sex Assigned at Not on file Legal Sex Female 14:58 EST Gender Identity Female 08/09/2019 13:13 EST Sexual Orientation Not on file documented as of this encounter Plan of Treatment Upcoming Encounters Date Type Department Care Team (Late st Contact Info) Description 09/18/2024 9:45 EST Office Visit [address] [address] Chapo Jonas MD [address] [place] [phone] 06/18/2025 9:00 EDT Office Visit [address] [place] [address] Chapo Jonas MD [address] [place] [phone] documented as of this encounter Procedures Procedure Name Priority Date/Time Associated Diagnosis Comments ZZCOVID-19 TEST [facility] PCR Today 10/07/2020 17:00 EST COVID-19 TESTING Routine 10/07/2020 17:0 0 EST documented in this encounter Results * COVID-19 TEST [facility] PCR (10/07/2020 17:00 EST) Swab ENTIRE NASOPHARYNX / Unknown 10/07/2020 17:00 EST 10/08/2020 21:12 EST us Provider Outr Resulting Lab MICROBIOLOGY - GENER AL ORDERABLES Final Result Performing Organization Address City/State/[facility] Co de Phone Number [facility] [address] [place] [phone] * COVID-19 TESTING (10/07/2020 17:00 EST) COVID-19 rt-PCR Result Negative Negative 10/09/2020 14:28 EST [facility] Comment: This test has not been FDA cleared or approved. This test has been authorized by FDA under an EUA for use by authorized laboratories. This test has been authorized only for detection of nucleic acid from 2019-nCoV, not for any other viruses or pathogens. This test is only authorized for the duration of the declaration that circumstances exist justifying the authorization of emergency use of in vitro diagnostic tests for detection and/or diagnosis of 2019-nCoV under section 564(b)(1) of Act, 21 U.S.C ?? 360bbb-3(b) (1), unless the authorization is terminated or revoked sooner. Negative results do not preclude 2019-nCoV infection and should not be used as the sole basis for treatment or other patient management decisions. Negative results must be combined with clinical observations, patient history, and epidemiological information. This test was developed and its performance characteristics determined by [facility]. It has not been cleared or approved by the US Food and Drug Administration. FDA does not require this test to go through premarket FDA review. This test is used for clinical purposes. It should not be regarded as investigational or for research. This laboratory is certified under the Clinical Laboratory Improvement Amendments (CLIA) as qualified to perform high complexity clinical laboratory testing. This test is based on the [facility] COVID-19 Emergency Use Authorization (EUA) assay, with minor modification as defined by the FDA Performed on the Civo Flex RT-PCR System. Performing Lab [facility] 10/09/2020 14:28 EST [facility] Swab 10/07/2020 17:0 0 EST 10/08/2020 21:12 EST us Provider Outr Resulting Lab MICROBIOLOGY - GENER AL ORDERABLES Final Result [facility] [address] [place] [address] documented in this encounter Visit Diagnoses Not on filedocumented in this encounter Care Teams Radioisotope Technologist Relationship Specialty Start Date End Date Chapo Jonas MD [address] [place] [address] [phone] PCP - General 07/25/19 documented as of this encounter
--- OUTSIDE RECORDS SUMMARY | 2024-09-13 16:16 | XMS_ITS | Encounter Summary ---
Author Organization [facility] Address [address] [place] [address] Care Team Providers Care Records Manager Name Role Phone Chapo Jonas MD Primary Care Provider Reason for Visit * Reason Onset Date Comments Medications Refill 04/18/2024 Encounter Details Date Type Department Care Team (Late st Contact Info) Description 04/18/2024 Refill [facility] Family Medicine [facility] [address] [place] [phone] Chapo Jonas MD [address] [place] [phone] Medications Refill Social History Tobacco Use Types Packs/Day Years Used Date Smoking Tobacco: Never Cigarettes Pipe Cigars Smokeless Tobacco: Never Alcohol Use Standard Drinks/Week Comments Yes 0 (1 standard drink = 0.6 oz pur e alcohol) Occasional PHQ-2 Answer Date Recorded PHQ-2 SUBTOTAL 1 01/06/2024 Interpersonal Safety Answer Date Record ed Physically [...] Refills Last Filled Start Date End Date buPROPion (WELLBUTRIN) 75 mg tablet Take 1 Tablet by mouth daily for 120 days. 30 Tablet 3 04/19/2024 06/08/2024 documented in this encounter Miscellaneous Notes * Telephone Encounter - Essence Berry RN - 04/18/2024 1314 EDT Refill request for wellbutrin GRETTA: 01/06/24- wellbutrin was stopped at this visit. F/U: 06/08/24 Pt. Sent a [employer] message stating she has restarted wellbutrin alongside therapy. Sent to provider for approval documented in this encounter Plan of Treatment Upcoming Encounters Date Type Department Care Team (Late st Contact Info) Description 09/18/2024 9:45 EST Office Visit [address] [address] Chapo Jonas MD [address] [place] [phone] 06/18/2025 9:00 EDT Office Visit [address] [address] Chapo Jonas MD [address] [place] [address] [phone] documented as of this encounter Visit Diagnoses Not on filedocumented in this encounter Discontinued Medications Medication Sig Discontinue Reason Start Date End Da te buPROPion (WELLBUTRIN) 75 mg tablet Take 1 Tablet by mouth daily for 30 days. Reorder 06/16/2023 04/18/2024 documented as of this encounter Care Teams Records Manager Relationship Specialty Start Date End Date Chapo Jonas MD [address] [place] [phone] PCP - General 07/25/19 documented as of this encounter
--- OUTSIDE RECORDS SUMMARY | 2024-09-13 16:16 | XMS_ITS | Encounter Summary ---
Author Organization [facility] Address [address] [place] [address] Care Team Providers Care Building Architect Name Role Phone Chapo Jonas MD Primary Care Provider [phone] Reason for Visit * Reason Onset Date Comments Medications Refill 12/18/2023 Encounter Details Date Type Department Care Team (Late st Contact Info) Description 12/18/2023 Refill [facility] Family Medicine [facility] [address] [place] [phone] Chapo Jonas MD [address] [place] [phone] Medications Refill Social History Tobacco Use Types [...] mg tablet Take 1 Tablet by mouth 3 times daily. 90 Tablet 2 12/22/2023 01/06/2024 documented in this encounter Miscellaneous Notes * Telephone Encounter - Kay Luque RN - 12/22/2023 1119 EDT Electronic request received from [facility]. [facility]: [facility] 08/12/2023 Follow-up: 01/06/2024 Rx approved per protocol. * Telephone Encounter - Marlena Aparicio - 12/22/2023 0941 EDT Pt scheduled for F/U on 01/05 with JW * Telephone Encounter - Jessica Navarro RN - 12/21/2023 1325 EDT Marlena Patient responded with Date from your awsome letter. Not sure if you saw. Once scheduled please return to Nursing to fill thank you * Telephone Encounter - Marlena Aparicio - 12/19/2023 1424 EDT MCM sent. * Telephone Encounter - Kay Luque RN - 12/19/2023 1009 EDT Electronic request received from pharmacy[facility]: [facility] 08/12/2023 Follow-up: [facility] 06/08/2024 Rx pended. Please schedule patient for mood follow up 4-6 months from last visit on 08/12/2024 per PCP notes. documented in this encounter Plan of Treatment Upcoming Encounters Date Type Department Care Team (Late st Contact Info) Description 09/18/2024 9:45 EST Office Visit [address] [address] Chapo Jonas MD [address] [place] [phone] 06/18/2025 9:00 EDT Office Visit [address] [address] Chapo Jonas MD [address] [place] [address] [phone] documented as of this encounter Visit Diagnoses Not on filedocumented in this encounter Discontinued Medications Medication Sig Discontinue Reason Start Date End Da te buPROPion (WELLBUTRIN) 75 mg tablet Take 1 Tablet by mouth 3 times daily. Reorder 08/12/2023 12/18/2023 documented as of this encounter Care Teams Building Architect Relationship Specialty Start Date End Date Chapo Jonas MD [address] [place] [phone] PCP - General 07/25/19 documented as of this encounter
--- OUTSIDE RECORDS SUMMARY | 2024-09-13 16:16 | XMS_ITS | Encounter Summary ---
Author Organization [facility] Address [address] [place] [address] Care Team Providers Care Fruit Grader Name Role Phone Beatrice Shelley MD Primary Care Provide r Unavailable Encounter Details Date Type Department Care Team (Late st Contact Info) Description 08/04/2018 Historical Results Only [facility] - Main [address] [address] Chapo Jonas MD [address] [place] [address] [phone] Social History Tobacco Use Types Packs/Day Years Used Date Smoking Tobacco: Never Assessed Comments Unknown Sex and Gender Information Value Date Recorded Sex Assigned at Not on file Legal Sex Female 14:58 EST Gender Identity Female 08/09/2019 13:13 EST Sexual Orientation Not on file documented as of this encounter Plan of Treatment Upcoming Encounters Date Type Department Care Team (Late st Contact Info) Description 09/18/2024 9:45 EST Office Visit [address] [phone] Chapo Jonas MD [address] [place] [address] [phone] 06/18/2025 9:00 EDT Office Visit [address] [phone] Chapo Jonas MD [address] [place] [phone] documented as of this encounter Procedures Procedure Name Priority Date/Time Associated Diagnosis Comments H. PYLORI BREATH TEST Routine 08/04/2018 9:06 EST COMPLETE BLOOD COUNT WITH DIFFERENTIAL (AUTO) Routine 08/04/2018 9:05 EST TSH Routine 08/04/2018 9:05 EST LIPID PROFILE (INCLUDES CHOLESTEROL, TRIGLYCERIDES, HDL, LDL) Routine 08/04/2018 9:05 EST COMPREHENSIVE METABOLIC PANEL (CMP) Routine 08/04/2018 9:05 EST documented in this encounter Results * H. PYLORI BREATH TEST (08/04/2018 9:06 EST) H.PYLORI BREATH TEST - [facility] Negative Negative 08/07/2018 8:10 EST [facility] Comment: Result indicates the absence of current Helicobacter pylori infection. Test Performed by: [facility] [address] [place] [address] 08/04/2018 9:06 EST 08/04/2018 13:39 EST us Chapo Jonas MD GEN LAB UNIT COLLECT ORDERABLES Final Result [facility] * (ABNORMAL) LIPID PROFILE (INCLUDES CHOLESTEROL, TRIGLYCERIDES, HDL, LDL) (08/04/2018 9:05 EST) Triglyceride 42 <150 mg/dL 08/04/2018 14:03 EST [facility] Comment: Adult: Normal: ?<150 mg/dl ? Borderline High: 150-199 mg/dl ? High: ?200-499 mg/dl ? Very High: >sg=102 Cholesterol 170 <200 mg/dL 08/04/2018 14:03 [facility] Comment: Acceptable: ??<200 Borderline: ??200-239 High: ?> or = 240 Chol/HDL Ratio 1.6 0 - 4.5 08/04/2018 14:03 [facility] Comment: DESIRABLE RATIO IS LESS THAN 4.1 PATIENTS ARE CONSIDERED AT RISK: WOMEN RATIO >5 MEN RATIO >6 FASTING? - [facility] Yes 13:42 [facility] HDL 106(H) 40 - 60 mg/dL 08/04/2018 14:03 [facility] Comment: ?? Reference Range Low: ? < 40 ??mg/dL Normal: ??40-60 mg/dL High: ?>= 60 mg/dL LDL CHOLESTEROL - [facility] 56(L) 60 - 100 mg/dL 08/04/2018 14:03 [facility] Non HDL Cholesterol 64 mg/dl 08/04/2018 14:03 [facility] Comment: Desirable: ?Less than 130 Borderline High: ??130-159 High: ? 160-189 Very High: ?Greater than or equal to 190 08/04/2018 9:05 EST 08/04/2018 13:42 EST us Chapo Jonas MD CHEMISTRY & BLOOD GAS ORDERABLE S Final Result [facility] * COMPREHENSIVE METABOLIC PANEL (CMP) (08/04/2018 9:05 EST) Albumin % 4.5 3.4 - 4.9 g/dL 08/04/2018 14:03 [facility] ALKALINE PHOSPHATASE - [facility] 43 38 - 126 U/L 08/04/2018 14:03 [facility] BILIRUBIN TOTAL 1.0 0.2 - 1.3 mg/dL 08/04/2018 14:03 [facility] BUN - [facility] 16 10 - 26 mg/dL 08/04/2018 14:03 [facility] CALCIUM - [facility] 9.7 8.5 - 10.5 mg/dL 08/04/2018 14:03 [facility] Chloride 102 96 - 110 mmol/L 08/04/2018 14:03 [facility] CO2 Total 26 22 - 32 mEq/L 08/04/2018 14:03 [facility] CREATININE 0.77 0.52 - 1.04 mg/dL 08/04/2018 14:03 [facility] eGFR >60 08/04/2018 14:03 [facility] Comment: Chronic renal impairment is defined as GFR <60 Multiply result by 1.210 for patients. eGFR calculated using the IDMS-traceable MDRD Study Equation. ??(effective 07/01/2014) Anion Gap 9 0 - 18 08/04/2018 14:03 [facility] GLUCOSE - [facility] 86 70 - 100 mg/dL 08/04/2018 14:03 [facility] Potassium 4.4 3.5 - 5.0 mEq/L 08/04/2018 14:03 [facility] Sodium 137 136 - 145 mEq/L 08/04/2018 14:03 [facility] TOTAL PROTEIN - [facility] 7.4 6.2 - 8.2 gm/dL 08/04/2018 14:03 [facility] SGOT/AST - [facility] 26 14 - 36 U/L 08/04/2018 14:03 [facility] SGPT/ALT - [facility] 23 9 - 52 U/L 8 14:03 [facility] 08/04/2018 9:05 EST 08/04/2018 13:42 EST us Chapo Jonas MD CHEMISTRY & BLOOD GAS ORDERABLE S Final Result [facility] * TSH (08/04/2018 9:05 EST) THYROID STIM HORMONE - [facility] 1.29 0.46 - 4.68 uIU/ml 08/04/2018 14:33 [facility] Comment: The results of this assay can be falsely lowered due to the consumption of Biotin. 08/04/2018 9:05 EST 08/04/2018 13:42 EST us Chapo Jonas MD CHEMISTRY & BLOOD GAS ORDERABLE S Final Result [facility] * COMPLETE BLOOD COUNT WITH DIFFERENTIAL (AUTO) (08/04/2018 9:05 EST) ABSOLUTE NEUTROPHIL COUN - [facility] 1.72 1.7 - 7.0 10e3/ul 08/04/2018 14:08 [facility] BASO # - [facility] 0.01 0.0 - 0.3 10e3/uL 08/04/2018 14:08 [facility] BASO % - [facility] 0 0 - 2 % 08/04/2018 14:08 [facility] EOS # - [facility] 0.06 0.05 - 0.5 10e3/uL 08/04/2018 14:08 [facility] EOS % - [facility] 2 0 - 5 % 08/04/2018 14:08 [facility] GRAN % - [facility] 49 40 - 80 % 08/04/2018 14:08 [facility] HEMATOCRIT - [facility] 39.1 34.0 - 47.0 % 08/04/2018 14:08 [facility] HEMOGLOBIN - [facility] 12.9 11.2 - 15.7 g/dl 08/04/2018 14:08 [facility] IG# - [facility] 0 0 - 0.07 10e3/uL 08/04/2018 14:08 [facility] IG% - [facility] 0 0 - 0.9 % 08/04/2018 14:08 [facility] LYMPH # - [facility] 1.36 0.9 - 2.9 10e3/uL 08/04/2018 14:08 [facility] LYMPH% - [facility] 39 20 - 40 % 08/04/2018 14:08 [facility] MEAN CORPUSCULAR HGB - [facility] 30.9 26 - 34 pg 08/04/2018 14:08 [facility] MEAN CORPUSCULAR HGB CONC - [facility] 33.0 31 - 36 g/dL 08/04/2018 14:08 [facility] MEAN CELL VOLUME - [facility] 93.8 77 - 100 fl 08/04/2018 14:08 [facility] MONO # - [facility] 0.38 0.3 - 0.9 10e3/uL 08/04/2018 14:08 [facility] MONO% - [facility] 11 0 - 12 % 08/04/2018 14:08 [facility] PLATELET COUNT 193 150 - 400 10e3/ul 08/04/2018 14:08 [facility] RED BLOOD COUNT - [facility] 4.17 3.8 - 5.2 10e6/ul 08/04/2018 14:08 [facility] RED CELL DISTRI WIDTH - [facility] 12.4 11.8 - 15.6 % 08/04/2018 14:08 [facility] WHITE BLOOD COUNT - [facility] 3.5 3.5 - 10.5 10e3/ul 08/04/2018 14:08 [facility] 08/04/2018 9:05 EST 08/04/2018 13:42 EST us Chapo Jonas MD HEMATOLOGY & PF4 ORDERABLES Fin al Result [facility] documented in this encounter Visit Diagnoses Not on filedocumented in this encounter Care Teams Fruit Grader Relationship Specialty Start Date End Date Beatrice Shelley MD PCP - General 10/11/17 documented as of this encounter
--- OUTSIDE RECORDS SUMMARY | 2024-09-13 16:16 | XMS_ITS | Encounter Summary ---
Author Organization [facility] Address [address] [place] [address] Care Team Providers Care Director Of Field Sales Name Role Phone Tj Jonas MD Primary Care Provider Reason for Referral * PT/OT/ST (Routine/Next Available) - Authorization Not Required Specialty Diagnoses / Procedures [facility]erred To Contact Physical Therapy Diagnoses Pelvic floor dysfunction Tj Cha MD [address] [place] [phone] Phone: tel: fax: [facility] [address] [place] [phone] Phone: tel: fax: Referral ID Status Reason Start Date Expiration Date Visits Requested Visits Authorized [id number] Authorization Not Required Specialty Services Required 06/08/20 24 1 1 Question Answer Reason for Request: Pelvic floor dysfuction and long covid SITE [facility]/ [facility] PT Reason for Visit * Reason Comments Annual Exam Encounter Details Date Type Department Care Team (Latest Contact Info) Description 06/08/2024 9:15 EDT Office Visit [facility] Family Medicine - [place] [address] [place] [phone] Tj Jonas MD [address] [place] [phone] Annual physical exam (Primary Dx); Vitamin D deficiency; Need for hepatitis C screening test; Screening for HIV (human immunodeficiency virus); Pelvic floor dysfunction; Long COVID Social History Tobacco Use Types Packs/Day Years [...] your living situation today? I have a [facility] place to live 05/26/2024 Think about the [...] In the past 12 months has th [employer], [employer], oil, or water [employer] threatened to shut off services in your home? No 05/26/2024 Education Answer Date Recorded Do you speak a language other than [facility]? No 05/26/2024 Do you want help [...] EDT Pulse 73 06/08/2024 0909 EDT Temperature - - Respiratory Rate 16 06/08/2024 0909 EDT Oxygen Saturation 100% 06/08/2024 09 EDT Inhaled Oxygen Concentration - - Weight 59.7 kg (131 lb 9.6 oz) 06/08/2024 09 E DT Height - - Body Mass Index 19.43 07/28/2021 1416 EST documented in this encounter Functional Status * Because of [...] pt prefers thank you. 90 Tablet 3 06/08/2024 5 documented in this encounter Progress Notes * Tj Jonas MD - 06/08/2024 0915 EDT Subjective: Patient ID: Breanna West is an 38 y.o. female. PE [facility] Annual exam. Mammo/Dexa UTD. Lab Results Component Value Date CREATININE 0.68 07/28/2021 Lab Results Component Value Date NA 138 07/28/2021 K 4.1 07/28/2021 CL 100 07/28/2021 CO2 29 07/28/2021 Lab Results Component Value Date CHOL 199 07/28/2021 CHOL 170 08/04/2018 HDL 117 07/28/2021 HDL 106 (H) 08/04/2018 LDLBASE 68 07/28/2021 TRIG 70 07/28/2021 TRIG 42 08/04/2018 CHOLHDL 1.7 07/28/2021 CHOLHDL 1.6 08/04/2018 Past Medical History: Diagnosis Date Anxiety Depression Current Outpatient Medications on File Prior to Visit Medication Sig Dispense Refill albuterol 90 mcg/actuation inhaler Inhale 2 Puffs as directed every 4 hours as needed for Wheezing.(Patient not taking: Reported on 06/16/2023) 1 Each 3 CANNABIDIOL, CBD, EXTRACT ORAL Take 50 mg by mouth daily. (Patient not taking: Reported on 02/27/2021) ELDERBERRY FRUIT ORAL Take 1 Drop by mouth. (Patient not taking: Reported on 07/11/2023) estradioL (ESTRACE) 0.01 % (0.1 mg/gram) vaginal cream levonorgestrel (MIRENA) 20 mcg/24 hours (5 yrs) 52 mg IUD 1 Each by intrauterine route Once. melatonin 3 mg tablet Take 1 Tablet by mouth at bedtime. metoclopramide HCl (REGLAN) 10 mg tablet Take 1 Tablet by mouth 2 times daily as needed for Other (Nausea and vomiting). (Patient not taking: Reported on 06/08/2024) NURTEC ODT 75 mg tablet,disintegrating PRN omeprazole (PRILOSEC) 40 mg capsule Take 1 capsule by mouth daily. (Patient not taking: Reported on06/16/2023) 30 capsule 3 predniSONE (DELTASONE) 10 mg tablet Take 1 Tablet by mouth daily. (Patient not taking: Reported on 06/08/2024) No current facility-administered medications on file prior to visit. No Known Allergies Social Social History Tobacco Use Smoking status: Never Smokeless tobacco: Never Vaping Use Vaping status: Never Used Substance Use Topics Alcohol use: Yes Comment: Occasional Drug use: Yes Types: Marijuana Comment: Occasional ROS - See HPI Objective: BP 105/65 (BP Cuff Location: Right arm, BP Patient Position: Sitting, BP Cuff Sizes: Adult, regular) Pulse 73 Resp 16 Wt 59.7 kg (131 lb 9.6 oz) SpO2 100% BMI 19.43 kg/m?? Physical Exam Gen: Alert and oriented. No distress Cardiovascular: Normal rate, regular rhythm and normal heart sounds. No murmurs. Pulmonary/Chest: Effort normal and breath sounds normal. Psychiatric: normal mood and affect. Assessment: PE CMP/lipids/HIV/HepC/CBC. Mammo/dexa UTD Plan: Diagnoses and all orders for this visit: Annual physical exam - Cancel: COMPREHENSIVE METABOLIC PANEL (CMP) - Cancel: LIPID PROFILE (INCLUDES CHOLESTEROL, TRIGLYCERIDES, HDL, LDL) - Cancel: HEPATITIS C AB W REFLEX TO HCV RNA BY PCR - Cancel: HIV 1/2 ANTIGEN AND ANTIBODY, 4TH GENERATION - Cancel: VITAMIN D (25,[place]) - COMPLETE BLOOD COUNT AND DIFFERENTIAL; Future - COMPREHENSIVE METABOLIC PANEL (CMP); Future - LIPID PROFILE (INCLUDES CHOLESTEROL, TRIGLYCERIDES, HDL, LDL); Future - VITAMIN D (25,OH); Future Vitamin D deficiency - Cancel: VITAMIN D (25,OH) - VITAMIN D (25,OH); Future Need for hepatitis C screening test - Cancel: HEPATITIS C AB W REFLEX TO HCV RNA BY PCR Screening for HIV (human immunodeficiency virus) - Cancel: HIV 1/2 ANTIGEN AND ANTIBODY, 4TH GENERATION Other orders - metoclopramide HCl (REGLAN) 10 mg tablet; Take 1 Tablet by mouth 2 times daily as needed for Other (Nausea and vomiting). (Patient not taking: Reported on 06/08/2024) - predniSONE (DELTASONE) 10 mg tablet; Take 1 Tablet by mouth daily. (Patient not taking: Reported on 06/08/2024) - buPROPion (WELLBUTRIN) 75 mg tablet; Take 1 Tablet by mouth daily for 120 days. (OPOTEX) please -pt prefers thank you. No follow-ups on file. * Essence Berry RN - 06/08/202415 EDT Has had covid declines flu today documented in this encounter Miscellaneous Notes * Addendum Note - Tj Jonas MD - 06/08/2024 0915 EDTAddended by: TJ JONAS on: 06/08/2024 14:09 Modules accepted: Orders documented in this encounter Plan of Treatment Upcoming Encounters Date Type Department Care Team (Late st Contact Info) Description 09/18/2024 9:45 EST Office Visit [address] [address] Tj Jonas MD [address] [place] [phone] 06/18/2025 9:00 EDT Office Visit [address] [address] Tj Jonas MD [address] [place] [phone] Scheduled Orders Name Type Priority Associated Diagnoses Orde r Schedule COMPLETE BLOOD COUNT AND DIFFERENTIAL Lab Routine Annual physical exam Expected: 06/08/2024 (Approximate), Expires: 06/08/2025 COMPREHENSIVE METABOLIC PANEL (CMP) Lab Routine Annual physical exam Expected: 06/08/2024 (Approximate), Expires: 06/08/2025 LIPID PROFILE (INCLUDES CHOLESTEROL, TRIGLYCERIDES, HDL, LDL) Lab Routine Annual physical exam Expected: 06/08/2024 (Approximate), Expires: 06/08/2025 VITAMIN D (25,[place]) Lab Routine Annual physical exam Vitamin D deficiency Expected: 06/08/2024 (Approximate), Expires: 06/08/2025 Scheduled Referrals Name Type Priority Associated Diagnoses Order Schedule AMB CONS/FOLLOW UP PHYSICAL THERAPY - OUTSIDE OF NETWORK Outpatient Referral Routine/Next Available Pelvic floor dysfunction Long COVID Expected: 06/15/2024 (Approximate), Expires: 06/08/2025 documented as of this encounter Visit Diagnoses Diagnosis Annual physical exam- Primary Routine general medical examination at a health care facility Vitamin D deficiency Unspecified vitamin D deficiency Need for hepatitis C screening test Special screening examination for other specified viral diseases Screening for HIV (human immunodeficiency virus) Special screening examination for other specified viral diseases Pelvic floor dysfunction Pelvic muscle wasting Long COVID documented in this encounter Discontinued Medications Medication Sig Discontinue Reason Start Date End Da te buPROPion (WELLBUTRIN) 75 mg tablet Take 1 Tablet by mouth daily for 120 days. Reorder 04/19/2024 06/08/2024 documented as of this encounter Historical Medications * This list may reflect changes made after this encounter. predniSONE (DELTASONE) 10 mg tablet Take 1 Tablet by mouth daily. 09/07/2023 metoclopramide HCl (REGLAN) 10 mg tablet Take 1 Tablet by mouth 2 times daily as needed for Other (Nausea and vomiting). 09/13/2023 added in this encounter Care Teams Director Of Field Sales Relationship Specialty Start Date End Date Tj Jonas MD [address] [place] [phone] PCP - General 07/25/19 documented as of this encounter
--- OUTSIDE RECORDS SUMMARY | 2024-09-13 16:16 | XMS_ITS | Encounter Summary ---
Author Organization [facility] Address [address] [place] [address] Care Team Providers Care Snuff Container Inspector Name Role Phone Beatrice Shelley MD Primary Care Provide r Unavailable Encounter Details Date Type Department Care Team (Late st Contact Info) Description 01/26/[address] [facility] Radiology Results [address] [place], [place] [phone] Chris Dickson MD [address] [place] [phone] Social History Tobacco Use Types Packs/Day Years [...] Info) Description 09/18/2024 9:[address] [facility] Family Medicine - [address] [address] Chapo Jonas MD [address] [place] [phone] 06/18/2025 9:00 EDT Office Visit [facility] - [address] [phone] Chapo Jonas MD [address] [place] [phone] documented as of this encounter Procedures Procedure Name Priority Date/Time Associated Diagnosis Comments US ABDOMEN LIMITED 01/26/2019 15 :04 EDT US PELVIS TRANSVAGINAL COMPLETE 01/26/2019 15:03 EDT documented in this encounter Results * US ABDOMEN LIMITED (01/26/2019 15:04 EDT) Anatomical Region Laterality Modality Abdomen, Body Other 01/26/2019 15:0 4 EDT Narrative 01/26/2019 15:07 EDT ? EXAM: ULTRASOUND/ABDOMINAL LIMITED SINGLE EX. D/ (1441) ? CLINICAL INFORMATION: ? UMBILICAL/ABDOMINAL PAIN ? UMBILICAL HERNIA ? INDICATION: UMBILICAL/ABDOMINAL PAIN, ? UMBILICAL HERNIA ? ABD/UMBLICAL PAIN R/O HERNIA, LOWER QUAD PAIN ? TECHNIQUE: Focused ultrasound assessment in the area of the umbilicus ? was performed under the direction of the patient. Patient currently ? cannot feel abdominal wall abnormality. ? FINDINGS: No clear focal abnormality at the site of palpable concern ? in the periumbilical area is seen. No protrusion of intra-abdominal ? contents through the abdominal wall is seen. ? IMPRESSION: ? 1. No abdominal wall defect detected. Please note patient is ? currently unable to palpate abdominal wall defect. ? REPORT SIGNED IN OTHER VENDOR SYSTEM 01/26/2019 ?Reported By: Agapito Foster MD ? CC: [employer] ? Transcribed Date/Time: 01/26/2019 (2857) ? Group Tester: ? Printed Date/Time: 05/16/2019 (1942) ? PAGE 1 ? Signed Report ? Procedure Note Agapito Foster MD - 07/03/2019 EXAM: ULTRASOUND/ABDOMINAL LIMITED SINGLE EX. D/ (1441) CLINICAL INFORMATION: UMBILICAL/ABDOMINAL PAIN ? UMBILICAL HERNIA INDICATION: UMBILICAL/ABDOMINAL PAIN, ? UMBILICAL HERNIA ABD/UMBLICAL PAIN R/O HERNIA, LOWER QUAD PAIN TECHNIQUE: Focused ultrasound assessment in the area of theumbilicus was performed under the direction of the patient. Patient currently cannot feel abdominal wall abnormality. FINDINGS: No clear focal abnormality at the site of palpableconcern in the periumbilical area is seen. No protrusion of intra-abdominal contents through the abdominal wall is seen. IMPRESSION: 1. No abdominal wall defect detected. Please note patient is currently unable to palpate abdominal wall defect. REPORT SIGNED IN OTHER VENDOR SYSTEM 01/26/2019 Reported By: Agapito Foster MD CC: [employer] Transcribed Date/Time: 01/26/2019 (6717) Group Tester: Printed Date/Time: 05/16/2019 (1942) PAGE 1 Signed Report us Chris Dickson MD [facility] US ORDERABLES Final Result * US PELVIS TRANSVAGINAL (01/26/2019 15:03 EDT) Anatomical Region Laterality Modality Pelvis Other 01/26/2019 15:0 3 EDT Narrative 01/26/2019 15:06 EDT ? EXAM: ULTRASOUND/TRANSVAGINAL - HAZMAT CDL DRIVER W/ DO EX. D/ (1441) ? CLINICAL INFORMATION: ? BILATERAL LOWER QUADRANT ABDOMINAL PAIN ? H/O OVARIAN CYST ON (L) ? R/O OVARIAN CYST(S) ? TRANSVAGINAL - HAZMAT CDL DRIVER W/ DOPPLER ? Signs and Symptoms/Comments: ??BILATERAL LOWER QUADRANT ABDOMINAL ? PAIN, H/O OVARIAN CYST ON (L), R/O OVARIAN CYST(S) ? Comparison: None ? Technique: Pelvic ultrasound was performed. Color and Spectral ? Doppler imaging was also utilized with the assessment of both ? arterial and venous waveforms. Transvaginal scanning was performed. ? FINDINGS: ? Uterus: ? Orientation: Anteverted. ? Size: 6.6 cm x 2.5 cm x 5.4 cm ? Findings: An IUD is present within the endometrial cavity. Cervix: ? Normal. ? Endometrium: ? Echotexture: Homogeneous. ? Thickness: 1.7 mm (Premenopausal per patient) ? Ovaries: ? Right ovary: ? Size: 3.7 cm x 2.2 cm x 2.2 cm. ? Volume : 9.6 cc. ? Doppler flow: Color Doppler flow is present with arterial and venous ? waveforms. ? Findings: None. Normal small ovarian follicles are seen. ? Left ovary: ? Size: 2.7 cm x 2.2 cm x 1.5 cm. ? Volume : 4.7 cc. ? Doppler flow: Color Doppler flow is present with arterial and venous ? waveforms. ? Findings: None. Normal small ovarian follicles are seen. ? Cul-de-sac: No free fluid. ? PAGE 1 ? Signed Report ? (CONTINUED) ? IMPRESSION: ? 1. No uterine or ovarian abnormality detected. ? REPORT SIGNED IN OTHER VENDOR SYSTEM 01/26/2019 ?Reported By: Agapito Foster MD ? CC: [employer] ? Transcribed Date/Time: 01/26/2019 (1506) ? Group Tester: HIS.[email or web address] ? Printed Date/Time: 05/16/2019 (1943) ? PAGE 2 ? Signed Report ? Procedure Note Agapito Foster MD - 07/03/2019 EXAM: ULTRASOUND/TRANSVAGINAL - HAZMAT CDL DRIVER W/ DO EX. D/ (1441) CLINICAL INFORMATION: BILATERAL LOWER QUADRANT ABDOMINAL PAIN H/O OVARIAN CYST ON (L) R/O OVARIAN CYST(S) TRANSVAGINAL - HAZMAT CDL DRIVER W/ DOPPLER Signs and Symptoms/Comments: BILATERAL LOWER QUADRANT ABDOMINAL PAIN, H/O OVARIAN CYST ON (L), R/O OVARIAN CYST(S) Comparison: None Technique: Pelvic ultrasound was performed. Color and Spectral Doppler imaging was also utilized with the assessment of both arterial and venous waveforms. Transvaginal scanning was performed. FINDINGS: Uterus: Orientation: Anteverted. Size: 6.6 cm x 2.5 cm x 5.4 cm Findings: An IUD is present within the endometrial cavity. Cervix: Normal. Endometrium: Echotexture: Homogeneous. Thickness: 1.7 mm (Premenopausal per patient) Ovaries: Right ovary: Size: 3.7 cm x 2.2 cm x 2.2 cm. Volume : 9.6 cc. Doppler flow: Color Doppler flow is present with arterial andvenous waveforms. Findings: None. Normal small ovarian follicles are seen. Left ovary: Size: 2.7 cm x 2.2 cm x 1.5 cm. Volume : 4.7 cc. Doppler flow: Color Doppler flow is present with arterial andvenous waveforms. Findings: None. Normal small ovarian follicles are seen. Cul-de-sac: No free fluid. PAGE 1 Signed Report (CONTINUED) IMPRESSION: 1. No uterine or ovarian abnormality detected. REPORT SIGNED IN OTHER VENDOR SYSTEM 01/26/2019 Reported By: Agapito Foster MD CC: [employer] Transcribed Date/Time: 01/26/2019 (1506) Group Tester: Printed Date/Time: 05/16/2019 (7935) PAGE 2 Signed Report us Chris Dickson MD IMG US OB ORDERABLES Final Resul t documented in this encounter Visit Diagnoses Not on filedocumented in this encounter Care Teams Snuff Container Inspector Relationship Specialty Start Date End Date Beatrice Shelley MD PCP - General 10/11/17 documented as of this encounter
--- OUTSIDE RECORDS SUMMARY | 2024-09-13 16:16 | XMS_ITS | Encounter Summary ---
Author Organization [facility] Address [address] [place] [address] Care Team Providers Care Sports Commentator Name Role Phone Tj Jonas MD Primary Care Provider [phone] Reason for Visit * Reason Onset Date Comments Orders (Non Pre-visit) 12/04/2021 Encounter Details Date Type Department Care Team (Late st Contact Info) Description 12/04/2021 Telephone [facility] Family Medicine [address] [address] Twila Singh RN Orders (Non Pre-visit) Social History Tobacco Use Types Packs/Day Years [...] Refills Last Filled Start Date End Date omeprazole (PRILOSEC) 40 mg capsule Take 1 capsule by mouth daily. 30 capsule 3 12/04/2021 documented in this encounter Miscellaneous Notes * Telephone Encounter - Sandra Hollins RN - 12/11/2021 1659 EDT I called [facility] and they do not do the h-pylori breath test. * Telephone Encounter - Ricardo Galicia - 12/11/2021 1351 EDT Pt returned call, stated [facility] is preferable for the tests, and asked if a message could be left on her portal if she cant be reached by phone. [phone] * Telephone Encounter - Sandra Hollins RN - 12/11/2021 1211 EDT LMTCB * Addendum Note - Tj Jonas MD - 12/04/2021 1636 EDTAddended by: TJ JONAS on: 12/04/2021 16:36 Modules accepted: Orders * Telephone Encounter - Twila Singh RN - 12/04/2021 1633 EDT TE for orders. See patient message from 12/03/21. documented in this encounter Plan of Treatment Upcoming Encounters Date Type Department Care Team (Late st Contact Info) Description 09/18/2024 9:45 EST Office Visit [facility] Family Medicine - [address] [address] Tj Jonas MD [address] [place] [address] [phone] 06/18/2025 9:00 EDT Office Visit [facility] - [address] [address] Tj Jonas MD [address] [place] [address] [phone] documented as of this encounter Visit Diagnoses Diagnosis Gastroesophageal reflux disease without esophagitis- Primary Esophageal reflux documented in this encounter Care Teams Sports Commentator Relationship Specialty Start Date End Date Tj Jonas MD [address] [place] [address] [phone] PCP - General 07/25/19 documented as of this encounter
--- OUTSIDE RECORDS SUMMARY | 2024-09-13 16:16 | XMS_ITS | Encounter Summary ---
Author Organization [facility] Address [address] [place] [address] Care Team Providers Care Process Camera Operator Name Role Phone Chapo Jonas MD Primary Care Provider [phone] Encounter Details Date Type Department Care Team (Late st Contact Info) Description 01/06/2024 Lab Requisition [facility] Pathology & Laboratory Medicine - [facility] [address] [place] [address] Outr Resulting Lab, Provider Social History Tobacco [...] Info) Description 09/18/2024 9:45 EST Office Visit [address] [address] Chapo Jonas MD [address] [place] [address] [phone] 06/18/2025 9:00 EDT Office Visit [address] [phone] Chapo Jonas MD [address] [place] [address] [phone] documented as of this encounter Procedures Procedure Name Priority Date/Time Associated Diagnosis Comments QUANTIFERON MITOGEN (PERFORMABLE) Today 01/05/2024 15:38 EDT QUANTIFERON TB2 (PERFORMABLE) Today 01/05/2024 15:38 EDT QUANTIFERON TB1 (PERFORMABLE) Today 01/05/2024 15:38 EDT QUANTIFERON NIL (PERFORMABLE) Today 01/05/2024 15:38 EDT QUANTIFERON INTERPRETATION (PERFORMABLE) Today 01/05/2024 15:38 EDT QUANTIFERON TB GOLD PLUS Routine 01/05/2024 15:38 EDT documented in this encounter Results * QUANTIFERON INTERPRETATION (PERFORMABLE) (01/05/2024 15:38 EDT) [facility] Signature Quantiferon Interpretation Negative Negative 01/09/2024 14:21 EDT [facility] Comment:No interferon-gamma response to M. tuberculosis antigens was detected. ??Infection with M. tuberculosis is unlikely. A single negative result does not exclude infection with M. tuberculosis. ??In patients at high risk for M. tuberculosis infection, a second test should be considered. TB1 Ag minus Nil 0.03 IU/ml 01/09/20 24 14:21 EDT [facility] TB2 Ag minus Nil 0.02 IU/mL 01/09/20 24 14:21 EDT [facility] Blood VENOUS BLOOD / Unknown 01/05/2024 15:38 EDT 01/09/2024 12:49 EDT us Provider Outr Resulting Lab IMMUNOLOGY AND SEROL OGY ORDERABLES Final Result [facility] [address] [place], [place] [id number] * QUANTIFERON MITOGEN (PERFORMABLE) (01/05/2024 15:38 EDT) Blood VENOUS BLOOD / Unknown 01/05/2024 15:38 EDT 01/06/2024 17:42 EDT us Provider Outr Resulting Lab IMMUNOLOGY AND SEROL OGY ORDERABLES Final Result Performing Organization Address City/[facility]/ZIP Co de Phone Number [facility] [address] [place], [place] [id number] * QUANTIFERON TB2 (PERFORMABLE) (01/05/2024 15:38 EDT) Blood VENOUS BLOOD / Unknown 01/05/2024 15:38 EDT 01/06/2024 17:42 EDT us Provider Outr Resulting Lab IMMUNOLOGY AND SEROL OGY ORDERABLES Final Result [facility] [address] [place], [place] [id number] * QUANTIFERON TB1 (PERFORMABLE) (01/05/2024 15:38 EDT) Blood VENOUS BLOOD / Unknown 01/05/2024 15:38 EDT 01/06/2024 17:42 EDT us Provider Outr Resulting Lab IMMUNOLOGY AND SEROL OGY ORDERABLES Final Result [facility] [address] [place] [address] * QUANTIFERON NIL (PERFORMABLE) (01/05/2024 15:38 EDT) Blood VENOUS BLOOD / Unknown 01/05/2024 15:38 EDT 01/06/2024 17:42 EDT us Provider Outr Resulting Lab IMMUNOLOGY AND SEROL OGY ORDERABLES Final Result Performing Organization Address City/[facility]/ZIP Co de Phone Number [facility] [address] [place] [address] documented in this encounter Visit Diagnoses Not on filedocumented in this encounter Care Teams Process Camera Operator Relationship Specialty Start Date End Date Chapo Jonas MD [address] [place] [phone] PCP - General 07/25/19 documented as of this encounter
--- OUTSIDE RECORDS SUMMARY | 2024-09-13 16:16 | XMS_ITS | Encounter Summary ---
Author Organization [facility] Address [address] [place] [address] Care Team Providers Care Thread Puller Name Role Phone Chapo Jonas MD Primary Care Provider [phone] Encounter Details Date Type Department Care Team (Late st Contact Info) Description 08/23/2020 Lab Requisition [facility] Pathology & Laboratory Medicine - [address] [address] Outr Resulting Lab, Provider Social History Tobacco [...] Info) Description 09/18/2024 9:45 EST Office Visit [address] [address] Chapo Jonas MD [address] [place] [phone] 06/18/2025 9:00 EDT Office Visit [address] [address] Chapo Jonas MD [address] [place] [phone] documented as of this encounter Procedures Procedure Name Priority Date/Time Associated Diagnosis Comments ZZCOVID-19 TEST [facility] PCR Today 08/23/2020 10:19 EST COVID-19 TESTING Routine 08/23/2020 10:1 9 EST documented in this encounter Results * COVID-19 TEST [facility] PCR (08/23/2020 10:19 EST) Swab ENTIRE NASOPHARYNX / Unknown 08/23/2020 10:19 EST 08/24/2020 16:05 EST us Provider Outr Resulting Lab MICROBIOLOGY - GENER AL ORDERABLES Final Result Performing Organization Address City/State/[facility] Co de Phone Number [facility] [address] [place] [address] * COVID-19 TESTING (08/23/2020 10:19 EST) COVID-19 rt-PCR Result Negative Negative 08/24/2020 20:40 EST [facility] Comment: This test has [...] clinical observations, patient history, and epidemiological information. Performed on the CyberSponse instrument Performing Lab [place] [facility] 08/24/2020 20:40 EST [facility] Swab 08/23/2020 10:1 9 EST 08/24/2020 16:05 EST us Provider Outr Resulting Lab MICROBIOLOGY - GENER AL ORDERABLES Final Result [facility] [address] [place] [address] documented in this encounter Visit Diagnoses Not on filedocumented in this encounter Care Teams Thread Puller Relationship Specialty Start Date End Date Chapo Jonas MD [address] [place] [phone] PCP - General 07/25/19 documented as of this encounter
--- OUTSIDE RECORDS SUMMARY | 2024-09-13 16:16 | XMS_ITS | Encounter Summary ---
Author Organization [facility] Address [address] [place] [address] Care Team Providers Care Acid Remover Name Role Phone Chapo Jonas MD Primary Care Provider [phone] Encounter Details Date Type Department Care Team (Late st Contact Info) Description 10/07/2022 Lab Requisition [facility] Pathology & Laboratory Medicine - [facility] [address] [place] [address] Outr Resulting Lab, Provider Social History Tobacco [...] Info) Description 09/18/2024 9:45 EST Office Visit [address] [address] Chapo Jonas MD [address] [place] [address] [phone] 06/18/2025 9:00 EDT Office Visit [address] [phone] Chapo Jonas MD [address] [place] [address] [phone] documented as of this encounter Procedures Procedure Name Priority Date/Time Associated Diagnosis Comments QUANTIFERON MITOGEN (PERFORMABLE) Today 10/06/2022 11:45 EST QUANTIFERON TB2 (PERFORMABLE) Today 10/06/2022 11:45 EST QUANTIFERON TB1 (PERFORMABLE) Today 10/06/2022 11:45 EST QUANTIFERON NIL (PERFORMABLE) Today 10/06/2022 11:45 EST QUANTIFERON INTERPRETATION (PERFORMABLE) Today 10/06/2022 11:45 EST QUANTIFERON TB GOLD PLUS Routine 10/06/2022 11:45 EST documented in this encounter Results * QUANTIFERON INTERPRETATION (PERFORMABLE) (10/06/2022 11:45 EST) Quantiferon Interpretation Negative Negative 10/08/2022 11:51 EST [facility] Comment:No interferon-gamma response to M. tuberculosis antigens was detected. ??Infection with M. tuberculosis is unlikely. A single negative result does not exclude infection with M. tuberculosis. ??In patients at high risk for M. tuberculosis infection, a second test should be considered. TB1 Ag minus Nil 0.02 IU/ml 02/10/20 23 11:51 EST [facility] TB2 Ag minus Nil 0.01 IU/mL 10/08/19 11:51 EST [facility] Blood VENOUS BLOOD / Unknown 10/06/2022 11:45 EST 10/08/2022 11:03 EST Narrative [facility] - 10/08/2022 11:51 EST Results were obtained with the Qiagen QuantiFERON-TB Gold Plus CLIA. New platform in use 05/06/2021 us Provider Outr Resulting Lab IMMUNOLOGY AND SEROL OGY ORDERABLES Final Result Performing Organization Address City/[facility]/ZIP Co de Phone Number [facility] [address] [place] [address] * QUANTIFERON MITOGEN (PERFORMABLE) (10/06/2022 11:45 EST) Blood VENOUS BLOOD / Unknown 10/06/2022 11:45 EST 10/07/2022 20:50 EST us Provider Outr Resulting Lab IMMUNOLOGY AND SEROL OGY ORDERABLES Final Result Performing Organization Address [facility] Co de Phone Number [facility] [address] [place] [address] * QUANTIFERON TB2 (PERFORMABLE) (10/06/2022 11:45 EST) Blood VENOUS BLOOD / Unknown 10/06/2022 11:45 EST 10/07/2022 20:50 EST us Provider Outr Resulting Lab IMMUNOLOGY AND SEROL OGY ORDERABLES Final Result [facility] [address] [place] [address] * QUANTIFERON TB1 (PERFORMABLE) (10/06/2022 11:45 EST) Blood VENOUS BLOOD / Unknown 10/06/2022 11:45 EST 10/07/2022 20:50 EST us Provider Outr Resulting Lab IMMUNOLOGY AND SEROL OGY ORDERABLES Final Result [facility] [address] [place] [address] * QUANTIFERON NIL (PERFORMABLE) (10/06/2022 11:45 EST) Blood VENOUS BLOOD / Unknown 10/06/2022 11:45 EST 10/07/2022 20:50 EST us Provider Outr Resulting Lab IMMUNOLOGY AND SEROL OGY ORDERABLES Final Result Performing Organization Address City/[facility] Co de Phone Number [facility] [address] [place] [address] documented in this encounter Visit Diagnoses Not on filedocumented in this encounter Care Teams Acid Remover Relationship Specialty Start Date End Date Chapo Jonas MD [address] [place] [phone] PCP - General 07/25/19 documented as of this encounter
--- OUTSIDE RECORDS SUMMARY | 2024-09-13 16:16 | XMS_ITS | Encounter Summary ---
Author Organization [facility] Address [address] [place] [address] Care Team Providers Care Care Worker Name Role Phone Chapo Jonas MD Primary Care Provider [phone] Reason for Referral * (Routine/Next Available) - Receiving Office to Obtain Authorization Specialty Diagnoses / Procedures Referred By Contac t Referred To Contact Procedures US OUTSIDE IMAGES OTHER Imaging, External Referral ID Status Reason Start Date Expiration Date Visits Requested Visits Authorized [id number] Receiving Office to Obtain Authorization 08/01/2024 1 1 Reason for Visit * (Routine/Next Available) - Receiving Office to Obtain Authorization Specialty Diagnoses / Procedures Referred By Contac t Referred To Contact Procedures US OUTSIDE IMAGES OTHER Imaging, External Referral ID Status Reason Start Date Expiration Date Visits Requested Visits Authorized [id number] Receiving Office to Obtain Authorization 08/01/2024 1 1 Encounter Details Date Type Department Care Team (Latest Contact Info) Description 08/01/2024 16:56 EST - 08/01/2024 23:59 EST Hospital Encounter [facility] Secondary Reads [place] Discharge Disposition: Home or Self Care Social History Tobacco Use Types Packs/Day Years [...] Recorded In the past 12 months has e Partnered, gas, oil, or water [employer] threatened to shut off services in your home? No 05/26/2024 Education Answer Date Recorded Do you speak a language other than [place] at [facility]? No 05/26/2024 Do you want help [...] 07/28/2021 14:22 EST documented in this encounter Medications at Time of Discharge albuterol 90 mcg/actuation inhaler Inhale 2 Puffs as directed every 4 hours as needed for Wheezing. 1 Each 3 04/22/2022 buPROPion (WELLBUTRIN) 75 mg tablet Take 1 Tablet by mouth daily for 120 days. (OPOTEX) please - pt prefers thank you. 90 Tablet 3 06/08/2024 5 CANNABIDIOL, CBD, EXTRACT ORAL Take 50 mg by mouth daily. ELDERBERRY FRUIT ORAL Take 1 Drop by mouth. estradioL (ESTRACE) 0.01 % (0.1 mg/gram) vaginal cream 12/22/2022 levonorgestrel (MIRENA) 20 mcg/24 hours (5 yrs) 52 mg IUD 1 Each by intrauterine route Once. melatonin 3 mg tablet Take 1 Tablet by mouth at bedtime. metoclopramide HCl (REGLAN) 10 mg tablet Take 1 Tablet by mouth 2 times daily as needed for Other (Nausea and vomiting). 09/13/2023 NURTEC ODT 75 mg tablet,disintegr ating PRN 06/14/2023 omeprazole (PRILOSEC) 40 mg capsule Take 1 capsule by mouth daily. 30 capsule 3 12/04/2021 predniSONE (DELTASONE) 10 mg tablet Take 1 Tablet by mouth daily. 09/07/2023 documented as of this encounter Discharge Disposition Disposition Code Departure Means Destination Home or Self Care documented in this encounter Plan of Treatment Upcoming Encounters Date Type Department Care Team (Late st Contact Info) Description 09/18/2024 9:45 EST Office Visit [address] [address] Chapo Jonas MD [address] [place] [address] [phone] 06/18/2025 9:00 EDT Office Visit [address] [address] Chapo Jonas MD [address] [place] [address] [phone] documented as of this encounter Procedures Procedure Name Priority Date/Time Associated Diagnosis Comments US OUTSIDE IMAGES OTHER Routine 08/01/2024 16:57 EST documented in this encounter Results * US OUTSIDE IMAGES OTHER (08/01/2024 16:57 EST) Narrative 08/01/2024 16:57 EST This is a non-reportable exam. us External Imaging IMG OTHER IMAGING ORDERABLES Fi nal Result documented in this encounter Visit Diagnoses Not on filedocumented in this encounter Care Teams Care Worker Relationship Specialty Start Date End Date Chapo Jonas MD [address] [place] [address] [phone] PCP - General 07/25/19 documented as of this encounter
--- OUTSIDE RECORDS SUMMARY | 2024-09-13 16:16 | XMS_ITS | Encounter Summary ---
Author Organization [facility] Address [address] [place] [address] Care Team Providers Care Professor In Family Studies Name Role Phone Chapo Jonas MD Primary Care Provider [phone] Reason for Visit * Reason Onset Date Comments Other 07/22/2020 Encounter Details Date Type Department Care Team (Late st Contact Info) Description 07/22/2020 Telephone [facility] Family Medicine - [place] [address] [place] [address] Chapo Jonas MD [address] [place] [phone] Other Social History Tobacco Use Types Packs/Day Years [...] on file documented as of this encounter Miscellaneous Notes * Telephone Encounter - Yaw Garcia - 07/23/2020 1001 EST M advising that letter is drafted for pickup. * Telephone Encounter - Yaw Garcia - 07/22/2020 1711 EST In your box for review and possible signature. * Telephone Encounter - Yaw Garcia - 07/22/2020 1407 EST Patient is requesting letter be drafted advising that [facility] should consider counselling (with Mica Atkins) be considered medically necessary and therefore request that they reimburse for associated co-pays. I'll draft a letter and have you review for signature. documented in this encounter Plan of Treatment Upcoming Encounters Date Type Department Care Team (Late st Contact Info) Description 09/18/2024 9:45 EST Office Visit [address] [address] Chapo Jonas MD [address] [place] [address] [phone] 06/18/2025 9:00 EDT Office Visit [address] [address] Chapo Jonas MD [address] [place] [phone] documented as of this encounter Visit Diagnoses Not on filedocumented in this encounter Care Teams Professor In Family Studies Relationship Specialty Start Date End Date Chapo Jonas MD [address] [place] [phone] PCP - General 07/25/19 documented as of this encounter
--- OUTSIDE RECORDS SUMMARY | 2024-09-13 16:16 | XMS_ITS | Encounter Summary ---
Author Organization [facility] Address [address] [place] [address] Care Team Providers Care Buhr Dresser Name Role Phone Chapo Jonas MD Primary Care Provider [phone] Reason for Visit * Reason Onset Date Comments Medications Refill 09/19/2019 Encounter Details Date Type Department Care Team (Late st Contact Info) Description 09/19/2019 Refill [facility] Family Medicine - [address] [address] Krys Scott, RN Medications Refill Social History Tobacco Use Types Packs/Day Years Used Date Smoking Tobacco: Never Smokeless Tobacco: Never Comments Unknown Sex and Gender Information Value Date Recorded Sex Assigned at Not on file Legal Sex Female 14:58 EST Gender Identity Female 08/09/2019 13:13 EST Sexual Orientation Not on file documented as of this encounter Ordered Prescriptions Prescription Sig Dispense Quantity Refills Last Filled Start Date End Date benzonatate (TESSALON) 100 mg capsule Take 2 Caps by mouth 3 times daily as needed for up to 7 days for Cough. 21 Cap 09/19/2019 09/26/2019 documented in this encounter Miscellaneous Notes * Telephone Encounter - Krys Scott, RONI - 09/19/2019 1121 EST Patient called requesting a script for tessalon perles- states she is just getting over a post infectious cough- cough is still lingering. Is a patient of - works as a [employer] DEVELOPER. Requesting this be sent to [facility] documented in this encounter Plan of Treatment Upcoming Encounters Date Type Department Care Team (Late st Contact Info) Description 09/18/2024 9:45 EST Office Visit [address] [address] Chapo Jonas MD [address] [place] [address] [phone] 06/18/2025 9:00 EDT Office Visit [address] [address] Chapo Jonas MD [address] [place] [address] [phone] documented as of this encounter Visit Diagnoses Not on filedocumented in this encounter Care Teams Buhr Dresser Relationship Specialty Start Date End Date Chapo Jonas MD [address] [place] [address] [phone] PCP - General 07/25/19 documented as of this encounter
--- OUTSIDE RECORDS SUMMARY | 2024-09-13 16:16 | XMS_ITS | Encounter Summary ---
Author Organization [facility] Address [address] [place] [address] Care Team Providers Care Reflow Operator Name Role Phone Chapo Jonas MD Primary Care Provider Encounter Details Date Type Department Care Team (Late st Contact Info) Description 08/06/2019 Abstract [facility] Adult Primary Care - [address] [id number] Ambulatory, Mortuary Beautician Social History Tobacco Use Types Packs/Day Years [...] Info) Description 09/18/2024 9:45 EST Office Visit [address] [address] Chapo Jonas MD [address] [place] [address] [phone] 06/18/2025 9:00 EDT Office Visit [address] [address] Chapo Jonas MD [address] [place] [address] [phone] documented as of this encounter Visit Diagnoses Not on filedocumented in this encounter Historical Medications * This list may reflect changes made after this encounter. ELDERBERRY FRUIT ORAL Take 1 Drop by mouth. levonorgestrel (MIRENA) 20 mcg/24 hours (5 yrs) 52 mg IUD 1 Each by intrauterine route Once. CANNABIDIOL, CBD, EXTRACT ORAL Take 50 mg by mouth daily. melatonin 3 mg tablet Take 1 Tablet by mouth at bedtime. UNABLE TO FIND Other medication - -, Sig: Alive multi gummy 4 UNABLE TO FIND Other medication - -, Sig: Alive calcium 4 D gummy 4 UNABLE TO FIND Other medication - -, Sig: Lions natty tincture 2 drops 4 UNABLE TO FIND Hair, Skin, & Nails Gummies Multiple Vitamins tablet, chewable, Si tab(s) chewed once a day 4 UNABLE TO FIND Other medication - -, Sig: Ashley tonic (urbon moonshine) 2-3 mL 4 added in this encounter Care Teams Reflow Operator Relationship Specialty Start Date End Date Chapo Jonas MD [address] [place] [phone] PCP - General 07/25/19 documented as of this encounter
--- OUTSIDE RECORDS SUMMARY | 2024-09-13 16:16 | XMS_ITS | Encounter Summary ---
Author Organization [facility] Address [address] [place] [address] Care Team Providers Care Respiratory Therapy Director Name Role Phone Chapo Jonas MD Primary Care Provider Encounter Details Date Type Department Care Team (Late st Contact Info) Description 09/04/2020 Lab Requisition [facility] Pathology & Laboratory Medicine - [facility] [address] [place] [address] Outr Resulting Lab, Provider Social History Tobacco [...] Info) Description 09/18/2024 9:45 EST Office Visit [address] [address] Chapo Jonas MD [address] [place] [phone] 06/18/2025 9:00 EDT Office Visit [address] [place] [address] Chapo Jonas MD [address] [place] [phone] documented as of this encounter Procedures Procedure Name Priority Date/Time Associated Diagnosis Comments ZZCOVID-19 TEST [facility] PCR Today 09/03/2020 13:27 EST COVID-19 TESTING Routine 09/03/2020 13:2 7 EST documented in this encounter Results * COVID-19 TEST [facility] PCR (09/03/2020 13:27 EST) Swab ENTIRE NASOPHARYNX / Unknown 09/03/2020 13:27 EST 09/04/2020 15:33 EST us Provider Outr Resulting Lab MICROBIOLOGY - GENER AL ORDERABLES Final Result Performing Organization Address City/State/[facility] Co de Phone Number [facility] [address] [place] [phone] * COVID-19 TESTING (09/03/2020 13:27 EST) COVID-19 rt-PCR Result Negative Negative 09/04/2020 20:18 EST [facility] Comment: This test has [...] history, and epidemiological information. Performed on the [employer] [place] [employer] instrument Performing Lab [place] [facility] 09/04/2020 20:18 EST [facility] Swab 09/03/2020 13:2 7 EST 09/04/2020 15:33 EST us Provider Outr Resulting Lab MICROBIOLOGY - GENER AL ORDERABLES Final Result [facility] [address] [place] [address] documented in this encounter Visit Diagnoses Not on filedocumented in this encounter Care Teams Respiratory Therapy Director Relationship Specialty Start Date End Date Chapo Jonas MD [address] [place] [phone] PCP - General 07/25/19 documented as of this encounter
--- OUTSIDE RECORDS SUMMARY | 2024-09-13 16:16 | XMS_ITS | Encounter Summary ---
Author Organization [facility] Address [address] [place] [address] Care Team Providers Care Chief Airline Radio Operator Name Role Phone Chapo Jonas MD Primary Care Provider [phone] Encounter Details Date Type Department Care Team (Late st Contact Info) Description 07/11/2024 Lab Requisition [facility] Pathology & Laboratory Medicine - [facility] [address] [place] [address] Janiya Prado PA [address] [place] [phone] Neoplasm of uncertain behavior of skin Social History Tobacco Use Types Packs/Day Years [...] your living situation today? I have a [employer] place to live 05/26/2024 Think about the [...] Recorded In the past 12 months has [facility] [employer], [employer], oil, or water [employer] threatened to shut off services in your home? No 05/26/2024 Education Answer Date Recorded Do you speak a language other than [facility]? No 05/26/2024 Do you want [...] Description 09/18/2024 9:45 EST Office Visit [address] [address] Chapo Jonas MD [address] [place] [phone] 06/18/2025 9:00 EDT Office Visit [address] [address] Chapo Jonas MD [address] [place] [phone] documented as of this encounter Procedures Procedure Name Priority Date/Time Associated Diagnosis Comments SURGICAL PATHOLOGY Today 07/10/2024 15 :53 EST Neoplasm of uncertain behavior of skin documented in this encounter Results * SURGICAL PATHOLOGY (07/10/2024 15:53 EST) Note to Patient The following pathology results have been interpreted by your pathologist and may be available to you before your health provider has had the opportunity to review them. Please allow time for your provider to receive these results and explore management options, if applicable. 07/12/2024 10:23 [facility] Final Diagnosis A. SKIN OF BACK, RIGHT INFERIOR UPPER, SHAVE BIOPSY: - Intradermal nevus. 07/12/2024 10:23 [facility] Attestation There was significant resident/fellow involvement in the diagnostic evaluation of this case. By the signature below, the attending physician certifies that they have personally conducted a gross and/or microscopic examination of the described specimens and rendered or confirmed the above diagnosis. 07/12/2024 10:23 [facility] at 1022 Clinical History Stuck on inflamed papule(s) with crust; DDx: Irritated seborrheic keratosis vs traumatized nevus; clinical diagnosis code: D48.5 07/12/2024 10:23 [facility] Gross Description A. Received in formalin labelled with proper patient identification (initials E, A) and right inferior upper back is a shave biopsy of muniz papule (0.8 x 0.7 x 0.5 cm). The specimen is trisected inked blue and entirely submitted in A1. KAUSHAL MUNROE DO 07/11/2024 13:43 07/12/2024 10:23 [facility] Resident/Shine w: Kaushal Munroe DO 07/12/2024 10:23 [facility] Performing Lab [facility] 07/12/2024 10:23 [facility] Scanned Images 07/12/2024 10:23 [facility] Tissue SPECIMEN FROM SKIN / Unknown 07/10/2024 15:53 EST 07/11/2024 10:31 EST us Janiya ALVARADO PATHOLOGY ORDERABLES Final Res ult [facility] [address] [place] [address] documented in this encounter Visit Diagnoses Diagnosis Neoplasm of uncertain behavior of skin documented in this encounter Care Teams Chief Airline Radio Operator Relationship Specialty Start Date End Date Chapo Jonas MD [address] [place] [phone] PCP - General 07/25/19 documented as of this encounter
--- OUTSIDE RECORDS SUMMARY | 2024-09-13 16:16 | XMS_ITS | Encounter Summary ---
Author Organization [facility] Address [address] [place] [address] Care Team Providers Care Nitroglycerin Supervisor Name Role Phone Chapo Jonas MD Primary Care Provider [phone] Encounter Details Date Type Department Care Team (Late st Contact Info) Description 06/16/2023 Lab Requisition [facility] Pathology & Laboratory Medicine - [facility] [address] [place] [address] Outr Resulting Lab, Provider Social History Tobacco [...] Info) Description 09/18/2024 9:45 EST Office Visit [address] [phone] Chapo Jonas MD [address] [place] [phone] 06/18/2025 9:00 EDT Office Visit [address] [phone] Chapo Jonas MD [address] [place] [phone] documented as of this encounter Procedures Procedure Name Priority Date/Time Associated Diagnosis Comments LYME AB Routine 06/16/2023 13:20 EDT documented in this encounter Results * LYME AB (06/16/2023 13:20 EDT) Lyme Ab Negative Negative 06/17/2023 10:[address] [facility] Blood VENOUS BLOOD / Unknown 06/16/2023 13:20 EDT 06/16/2023 20:59 EDT us Provider Outr Resulting Lab IMMUNOLOGY AND SEROL OGY ORDERABLES Final Result [facility] [address] [place] [address] documented in this encounter Visit Diagnoses Not on filedocumented in this encounter Care Teams Nitroglycerin Supervisor Relationship Specialty Start Date End Date Chapo Jonas MD [address] [place] [phone] PCP - General 07/25/19 documented as of this encounter
--- OUTSIDE RECORDS SUMMARY | 2024-09-13 16:16 | XMS_ITS | Encounter Summary ---
Author Organization [facility] Address [address] [place] [address] Care Team Providers Care Hydraulic Billet Maker Name Role Phone Chapo Jonas MD Primary Care Provider [phone] Encounter Details Date Type Department Care Team (Late st Contact Info) Description 01/02/2020 Lab Requisition [facility] Pathology & Laboratory Medicine - [facility] [address] [place] [address] Outr Resulting Lab, Provider Social History Tobacco [...] Description 09/18/2024 9:45 EST Office Visit [address] [address] Chapo Jonas MD [address] [place] [phone] 06/18/2025 9:00 EDT Office Visit [address] [address] Chapo Jonas MD [address] [place] [phone] documented as of this encounter Procedures Procedure Name Priority Date/Time Associated Diagnosis Comments ZZCOVID-19 TEST [facility] PCR Today 01/01/2020 13:15 EDT COVID-19 TESTING Routine 01/01/2020 13:1 5 EDT documented in this encounter Results * COVID-19 TEST [facility] PCR (01/01/2020 13:15 EDT) Swab ENTIRE NASOPHARYNX / Unknown 01/01/2020 13:15 EDT 01/02/2020 16:01 EDT us Provider Outr Resulting Lab MICROBIOLOGY - GENER AL ORDERABLES Final Result [facility] [address] [place] [address] * COVID-19 TESTING (01/01/2020 13:15 EDT) COVID-19 rt-PCR Result Negative Negative 01/03/2020 14:12 EDT [facility] Comment: Negative results do not preclude 2019-nCoV infection and should not be used as the sole basis for treatment or other patient management decisions. Negative results must be combined with clinical observations, patient history, and epidemiological information. This test was developed and its performance characteristics determined by [facility]. It has not been cleared or approved [...] testing. This test is based on the CDC COVID-19 Emergency Use Authorization (EUA) assay, with minor modification as defined by the FDA Performed on the [employer] Fast. Performing Lab [facility] 01/03/2020 14:12 EDT [facility] Swab ENTIRE NASOPHARYNX / Unknown 01/01/2020 13:15 EDT 01/02/2020 16:01 EDT us Provider Outr Resulting Lab MICROBIOLOGY - GENER AL ORDERABLES Final Result [facility] [address] [place] [address] documented in this encounter Visit Diagnoses Not on filedocumented in this encounter Care Teams Hydraulic Billet Maker Relationship Specialty Start Date End Date Chapo Jonas MD [address] [place] [phone] PCP - General 07/25/19 documented as of this encounter
--- OUTSIDE RECORDS SUMMARY | 2024-09-13 16:16 | XMS_ITS | Encounter Summary ---
Author Organization [facility] Address [address] [place] [address] Care Team Providers Care Golf Cart Repairer Name Role Phone Chapo Jonas MD Primary Care Provider [phone] Reason for Visit * Reason Comments Depression Encounter Details Date Type Department Care Team (Latest Contact Info) Description 06/16/2023 9:[address] 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) (Primary Dx); Vitamin D deficiency; Hyperlipidemia, unspecified hyperlipidemia type; Screening for tuberculosis; Other fatigue Social History Tobacco Use Types Packs/Day Years [...] Sign Reading Time Taken Comments Blood Pressure 122/70 06/16/2023902 EDT Pulse 72 06/16/2023902 EDT Temperature 36.5 ??C (97.7 ??F) 06/16/2023902 EDT Respiratory Rate - - Oxygen Saturation 100% 06/16/2023902 EDT Inhaled Oxygen Concentration - - Weight 59.4 kg (131 lb) 06/16/2023902 EDT with shoes Height - - Body Mass Index 19.35 07/28/2021 1416 EST documented in this encounter [...] Tablet by mouth daily for 30 days. 30 Tablet 3 06/16/2023 04/18/2024 documented in this encounter Progress Notes * Jessica Navarro RN - 06/16/2023899 EDT Patient received both the Flu and Covid vaccine in [place] 06/06/23. Patient will send in paperwork to my chart or fax. At that time, vaccines will be entered into chart. Labs not drawn here at clinic. Reason Quantiferon lab needs to be done at hospital lab acording to [facility] lab, Patient declined having other labs drawn here that can be. Patient prefers to have one labdraw. Patient will have labs drawn at [facility] in [facility]. PCP is aware. daily release and dupe printer gave printed copies of labs ordered by PCP to Patient to take with her. * Chapo Jonas MD - 06/16/2023899 EDT Subjective: Patient ID: Breanna Cruz is an 37 y.o. female. No chief complaint on file. HPI Depression - symptoms present on and off over the past several year. As of recently, she has been having daily depressive symptoms and low level anxiety. Mild anxiety symptoms, although symptoms seemto be mostly depressive in nature. She has been on 5-htp extermination inspector. Mother with history of depression and taking Cymbalta (?) and Wellbutrin. She is currently amidst a job swtich. She is intersted indiscussing medications for her mood. She has a supportive spouse Elliot. Past Medical History: Diagnosis Date ??? Anxiety ??? Depression Current Outpatient Medications on File Prior to Visit Medication Sig Dispense Refill ??? albuterol 90 mcg/actuation inhaler Inhale 2 Puffs as directed every 4 hours as needed for Wheezing. (Patient not taking: Reported on 06/16/2023) 1 Each 3 ??? CANNABIDIOL, CBD, EXTRACT ORAL Take 50 mg by mouth daily. (Patient not taking: Reported on 02/27/2021) ??? ELDERBERRY FRUIT ORAL Take 1 Drop by mouth. ??? estradioL (ESTRACE) 0.01 % (0.1 mg/gram) vaginal cream ??? levonorgestrel (MIRENA) 20 mcg/24 hours (5 yrs) 52 mg IUD 1 Each by intrauterine route Once. ??? melatonin 3 mg tablet Take 1 Tablet by mouth at bedtime. ??? NURTEC ODT 75 mg tablet,disintegrating ??? omeprazole (PRILOSEC) 40 mg capsule Take 1 capsule by mouth daily. (Patient not taking: Reported on 06/16/2023) 30 capsule 3 ??? UNABLE TO FIND Other medication - -, Sig: Ashley tonic (urbon moonshine) 2-3 mL (Patient not taking: Reported on 06/16/2023) ? ? UNABLE TO FIND Hair, Skin, & Nails Gummies Multiple Vitamins tablet, chewable, Si tab(s) chewed once a day (Patient not taking: Reported on 06/16/2023) ??? UNABLE TO FIND Other medication - -, Sig: Lions natty tincture 2 drops (Patient not taking: Reported on 06/16/2023) ??? UNABLE TO FIND Other medication - -, Sig: Alive calcium 4 D gummy (Patient not taking: Reportedon 06/16/2023) ??? UNABLE TO FIND Other medication - -, Sig: Alive multi gummy No current facility-administered medications on file prior to visit. No Known Allergies Social Social History Tobacco Use ??? Smoking status: Never ??? Smokeless tobacco: Never Vaping Use ??? Vaping Use: Never used Substance Use Topics ??? Alcohol use: Yes Comment: Occasional ??? Drug use: Yes Types: Marijuana Comment: Occasional ROS - See HPI Objective: BP 122/70 Pulse 72 Temp 36.5 ??C (97.7 ??F) (Oral) Wt 59.4 kg (131 lb) Comment: with shoes SpO2 100% BMI 19.35 kg/m?? Physical Exam Gen: Alert and oriented. No distress Psychiatric: normal mood and affect. Assessment: Depression - we discussed starting very low dose Wellbutrin 75 mg once a day. Consider increasing to Wellbutrin 100 mg XL after about a month. Call with any issues. She is agreeable with plan. I spent a total of 31 minutes on the date of this encounter meeting with the patient and reviewing documentation/coordinating care as described in the above note. Plan: There are no diagnoses linked to this encounter. No follow-ups on file. documented in this encounter Plan of Treatment Upcoming Encounters Date Type Department Care Team (Late st Contact Info) Description 09/18/2024 9:45 EST Office Visit [facility] - [address] [address] Chapo Jonas MD [address] [place] [phone] 06/18/2025 9:00 EDT Office Visit [facility] - [address] [address] Chapo Jonas MD [address] [place] [phone] Scheduled Orders Name Type Priority Associated Diagnoses Orde r Schedule COMPLETE BLOOD COUNT Lab Routine Other fatigue Ordered: 06/16/2023 COMPREHENSIVE METABOLIC PANEL (CMP) Lab Routine Hyperlipidemia, unspecified hyperlipidemia type Other fatigue Ordered: 06/16/2023 LIPID PROFILE (INCLUDES CHOLESTEROL, TRIGLYCERIDES, HDL, LDL) Lab Routine Hyperlipidemia, unspecified hyperlipidemia type Ordered: 06/16/2023 TSH Lab Routine Mild episode of recurrent major depressive disorder (HCC-CMS) Other fatigue Ordered: 06/16/2023 VITAMIN D (25,[place]) Lab Routine Vitamin D deficiency Ordered: 06/16/2023 LYME AB SCREEN, IGG AND IGM Lab Routine Other fatigue Ordered: 06/16/2023 QUANTIFERON TB GOLD PLUS Lab Routine Screening for tuberculosis Ordered: 06/16/2023 QUANTIFERON NIL (PERFORMABLE) Lab Routine Screening for tuberculosis Ordered: 06/16/2023 QUANTIFERON TB1 (PERFORMABLE) Lab Routine Screening for tuberculosis Ordered: 06/16/2023 QUANTIFERON TB2 (PERFORMABLE) Lab Routine Screening for tuberculosis Ordered: 06/16/2023 QUANTIFERON MITOGEN (PERFORMABLE) Lab Routine Screening for tuberculosis Ordered: 06/16/2023 documented as of this encounter Visit Diagnoses Diagnosis Mild episode of recurrent major depressive disorder (HCC-CMS)- Primary Vitamin D deficiency Unspecified vitamin D deficiency Hyperlipidemia, unspecified hyperlipidemia type Screening for tuberculosis Screening examination for pulmonary tuberculosis Other fatigue documented in this encounter Discontinued Medications Medication Sig Discontinue Reason Start Date End Da te metoclopramide HCl (REGLAN) 10 mg tablet Take 1 Tablet by mouth 2 times daily. Therapy completed 04/22/2022 06/16/2023 documented as of this encounter Historical Medications * This list may reflect changes made after this encounter. Medication Sig Dispense Quantity Refills Last Filled Start D ate End Date NURTEC ODT 75 mg tablet,disintegrating PRN 06/14/2023 estradioL (ESTRACE) 0.01 % (0.1 mg/gram) vaginal cream 12/22/2022 added in this encounter Care Teams Golf Cart Repairer Relationship Specialty Start Date End Date Chapo Jonas MD [address] [place] [phone] PCP - General 07/25/19 documented as of this encounter
--- OUTSIDE RECORDS SUMMARY | 2024-09-13 16:16 | XMS_ITS | Encounter Summary ---
Author Organization [facility] Address [address] [place] [address] Care Team Providers Care Family Court Justice Name Role Phone Chapo Jonas MD Primary Care Provider [phone] Encounter Details Date Type Department Care Team (Late st Contact Info) Description 08/07/2020 Lab Requisition [facility] Pathology & Laboratory Medicine - [address] [address] Outr Resulting Lab, Provider Social History Tobacco [...] Description 09/18/2024 9:45 EST Office Visit [address] [address] Chapo Jonas MD [address] [place] [phone] 06/18/2025 9:00 EDT Office Visit [address] [address] Chapo Jonas MD [address] [place] [phone] documented as of this encounter Procedures Procedure Name Priority Date/Time Associated Diagnosis Comments ZZCOVID-19 TEST [facility] PCR Today 08/07/2020 14:52 EST COVID-19 TESTING Routine 08/07/2020 14:5 2 EST documented in this encounter Results * COVID-19 TEST [facility] PCR (08/07/2020 14:52 EST) Swab ENTIRE NASOPHARYNX / Unknown 08/07/2020 14:52 EST 08/07/2020 21:52 EST us Provider Outr Resulting Lab MICROBIOLOGY - GENER AL ORDERABLES Final Result Performing Organization Address City/State/[facility] Co de Phone Number [facility] [address] [place] [phone] * COVID-19 TESTING (08/07/2020 14:52 EST) COVID-19 rt-PCR Result Negative Negative 08/08/2020 1:10 EST [facility] Comment: This test [...] history, and epidemiological information. Performed on the [employer] instrument Performing Lab [place] [facility] 08/08/2020 1:10 EST [facility] Swab 08/07/2020 14:5 2 EST 08/07/2020 21:52 EST us Provider Outr Resulting Lab MICROBIOLOGY - GENER AL ORDERABLES Final Result [facility] [address] [place] [address] documented in this encounter Visit Diagnoses Not on filedocumented in this encounter Care Teams Family Court Justice Relationship Specialty Start Date End Date Chapo Jonas MD [address] [place] [phone] PCP - General 07/25/19 documented as of this encounter
--- OUTSIDE RECORDS SUMMARY | 2024-09-13 16:16 | XMS_ITS | Encounter Summary ---
Author Organization [facility] Address [address] [place] [address] Care Team Providers Care Tree Trimming Supervisor Name Role Phone Chapo Jonas MD Primary Care Provider [phone] Reason for Visit * Reason Onset Date Comments Medications Refill 12/22/2023 Encounter Details Date Type Department Care Team (Late st Contact Info) Description 12/22/2023 Refill [facility] Family Medicine [facility] [address] [place] [address] Chapo Jonas MD [address] [place] [phone] Medications Refill Social History Tobacco Use Types [...] Info) Description 09/18/2024 9:45 EST Office Visit [address] [address] Chapo Jonas MD [address] [place] [phone] 06/18/2025 9:00 EDT Office Visit [address] [address] Chapo Jonas MD [address] [place] [phone] documented as of this encounter Visit Diagnoses Not on filedocumented in this encounter Care Teams Tree Trimming Supervisor Relationship Specialty Start Date End Date Chapo Jonas MD [address] [place] [phone] PCP - General 07/25/19 documented as of this encounter
--- OUTSIDE RECORDS SUMMARY | 2024-09-13 16:16 | XMS_ITS | Encounter Summary ---
Author Organization [facility] Address [address] [place] [address] Care Team Providers Care Director Geothermal Operations Name Role Phone Chapo Jonas MD Primary Care Provider [phone] Reason for Visit * Reason Comments Annual Exam Encounter Details Date Type Department Care Team (Late st Contact Info) Description 07/28/2021 14:00 EST Office Visit [facility] Family Medicine - [place] [address] [place] [phone] Chapo Jonas MD [address] [place] [address] [phone] Annual physical exam (Primary Dx); Dysuria Social History Tobacco Use Types Packs/Day Years [...] Sign Reading Time Taken Comments Blood Pressure 120/70 07/28/2021 1416 EST Pulse 60 07/28/2021 1416 EST Temperature 36.6 ??C (97.8 ??F) 07/28/2021 1416 EST Respiratory Rate 16 07/28/2021 1416 EST Oxygen Saturation 100% 07/28/2021 1416 EST Inhaled Oxygen Concentration - - Weight 56.9 kg (125 lb 8 oz) 07/28/2021 1416 EST Height 175.3 cm (5' 9) 07/28/2021 1416 EST Body Mass Index 18.53 07/28/2021 1416 EST documented in this encounter [...] 07/28/2021 14:22 EST documented in this encounter Progress Notes * Chapo Jonas MD - 07/28/2021 1400 EST Subjective: Patient ID: Breanna Cruz is an 35 y.o. female. CPX HPI Mood - treating with 5-HTP. Doing fairly well. Vaginal atrophy - [facility] in [place]. Current Outpatient Medications on File Prior to [...] 1 Tab by mouth at bedtime. ??? metoclopramide HCl (REGLAN) 10 mg tablet Take 1 Tablet by mouth 2 times daily. 10 Tablet 3 ??? UNABLE TO FIND Other medication [...] file ??? Drug use: Not on file ROS - See HPI Objective: There were no vitals taken for this visit. Wt Readings from Last 3 Encounters: 02/27/21 56.7 kg (125 lb) 08/10/19 57.2 kg (126 lb 1.6 oz) BP Readings from Last 3 Encounters: 08/10/19 110/62 Physical Exam Gen: Alert and oriented. No distress Neck: Normal range of motion. No lesions. Cardiovascular: Normal rate, regular rhythm and normal heart sounds. No murmurs. Pulmonary/Chest: Effort normal and breath sounds normal. Abdomen: soft NT/ND. No hepatosplenomegaly Skin: Skin is warm. No rash. Lymph: no lymphadenopathy. Psychiatric: normal mood and affect. Assessment: PE - CMP/lipids today. Follow up with [facility] in [place]. Call with any issues. Plan: There are no diagnoses linked to this encounter. No follow-ups on file. * Jessica Navarro RN - 07/28/2021 1400 EST Breanna is here for a Physical. Patient had second Covid Immunization on 09/10/2020 Flu Vaccine completed. Nurse verified Covid Immunizations with [place] Immunization Registry. PAP: Patient states last was in [facility] in 2017. Concerns: 1) UTI concerns 2) Depression 3) Anxiety 4) Hormonal discussion * Jessica Navarro RN - 07/28/2021 1400 EST Venipuncture performed on LT AC using butterfly, STTtop collected, tolerated well, ordered by Chapo Jonas MD, one attempt, Band-Aid applied. documented in this encounter Plan of Treatment Upcoming Encounters Date Type Department Care Team (Late st Contact Info) Description 09/18/2024 9:45 EST Office Visit [facility] - [address] [address] Chapo Jonas MD [address] [place] [address] [phone] 06/18/2025 9:00 EDT Office Visit [facility] - [address] [phone] Chapo Jonas MD [address] [place] [address] [phone] documented as of this encounter Procedures Procedure Name Priority Date/Time Associated Diagnosis Comments BACTERIAL CULTURE, URINE Routine 07/28/2021 14:59 EST Dysuria LIPID PROFILE (INCLUDES CHOLESTEROL, TRIGLYCERIDES, HDL, LDL) Routine 07/28/2021 14:59 EST Annual physical exam COMPREHENSIVE METABOLIC PANEL (CMP) Routine 07/28/2021 14:59 EST Annual physical exam POCT URINALYSIS Routine 07/28/2021 Dysuria documented in this encounter Results * LIPID PROFILE (INCLUDES CHOLESTEROL, TRIGLYCERIDES, HDL, LDL) (07/28/2021 14:59 EST) Cholesterol 199 See Note mg/dL 07/28/2021 19:45 EST [facility] Comment: Acceptable: ?<200 mg/dL Borderline High: 200-239 mg/dL High: ?> or = 240 mg/dL HDL 117 See Note mg/dL 07/28/2021 19:45 EST [facility] Comment: Low: ? <40 mg/dL Normal: ??40-60 mg/dL High: ?>60 mg/dL LDL, Calculated 68 See Note mg/dL 07/28/2021 19:45 [facility] Comment: Optimal: ? <100 mg/dL Near Optimal: ?100-129 mg/dL Borderline High: 130-159 mg/dL High: ?160-189 mg/dL Very High: ? > or = 190 mg/dL Triglyceride 70 See Note mg/dL 07/28/2021 19:45 [facility] Comment: Normal: ? <150 mg/dL Borderline High: ??150 - 199 mg/dL High: ? 200 - 499 mg/dL Very High: ?> or = 500 mg/dL Chol/HDL Ratio 1.7 See Note 07/28/2021 19:45 [facility] Comment: NOTE: Desirable Ratio = <4.1 Patient At Risk Ratio = >5.0(Males) ?>6.0(Females) Non HDL Cholesterol 82 See Note mg/dL 07/28/2021 19:45 [facility] Comment: Desirable: ?<130 mg/dL Borderline High: ??130-159 mg/dL High: ? 160-189 mg/dL Very High: ?> or = 190 mg/dL Blood VENOUS BLOOD / Unknown Venipuncture / Unknown 07/28/2021 14:59 EST 07/28/2021 14:59 EST us Chapo Jonas MD CHEMISTRY & BLOOD GAS ORDERABLE S Final Result [facility] [address] [place] [address] * (ABNORMAL) COMPREHENSIVE METABOLIC PANEL (CMP) (07/28/2021 14:59 EST) Sodium 138 136 - 145 mmol/L 07/28/2021 18:16 [facility] Potassium 4.1 3.5 - 5.0 mmol/L 07/28/2021 18:16 [facility] Chloride 100 96 - 110 mmol/L 07/28/2021 18:16 [facility] CO2 Total 29 22 - 32 mmol/L 07/28/2021 18:16 [facility] Glucose 78 70 - 100 mg/dL 07/28/2021 18:16 [facility] BUN 9(L) 10 - 26 mg/dL 07/28/2021 18:16 [facility] Creatinine 0.68 0.52 - 1.04 mg/dL 07/28/2021 18:16 [facility] eGFR 112 >60 mL/min/1.7 3m2 07/28/2021 18:16 [facility] Total Protein 7.6 6.3 - 8.2 g/dL 07/28/2021 18:16 [facility] Albumin 4.9 3.4 - 4.9 g/dL 07/28/2021 18:16 [facility] Alkaline Phosphatase 52 38 - 126 U/L 07/28/2021 18:16 [facility] AST 24 15 - 46 U/L 07/28/2021 18:16 [facility] ALT 13 <35 U/L 07/28/2021 18:16 [facility] Bilirubin, Total 0.6 <1.4 mg/dL 07/28/20 18:16 [facility] Calcium 9.5 8.5 - 10.5 mg/dL 07/28/2021 18:16 [facility] Albumin/Globulin Ratio 1.8 1.0 - 2.5 07/28/2021 18:16 [facility] Anion Gap 9 8 - 16 07/28/2021 18:16 [facility] Blood VENOUS BLOOD / Unknown Venipuncture / Unknown 07/28/2021 14:59 EST 07/28/2021 14:59 EST us Chapo Jonas MD CHEMISTRY & BLOOD GAS ORDERABLE S Final Result Performing Organization Address [facility] Co de Phone Number [facility] [address] [place] [address] * BACTERIAL CULTURE, URINE (07/28/2021 14:59 EST) Organism ID No Growth VITEK SUSCEPTIBILITY 07/30/2021 11:42 EST [facility] Urine URINE SPECIMEN COLLECTION, CLEAN CATCH / Unknown Urine Collect / Unknown 07/28/2021 14:59 EST 07/28/2021 14:59 EST us Chapo Jonas MD MICROBIOLOGY - GENERAL ORDERABL ES Final Result Performing Organization Address [facility] de Phone Number [facility] [address] [place] [address] * (ABNORMAL) POCT URINALYSIS (07/28/2021) Color, UA Light Yellow [facility] P OINT OF CARE Clarity, UA Slightly Cloudy [facility] POINT [facility] CARE Glucose, UA Negative . mg/dL [facility] PO INT OF CARE Bilirubin, UA Negative Negative [facility] POINT [facility] CARE Ketones, UA Negative . mg/dL [facility] PO INT [facility] CARE Spec Grav, UA 1.010 1.005 - 1.030 [facility] POINT [facility]ARE Blood, UA Trace(A) Negative [facility] PO[facility] T [facility] pH, UA 5.0 4.6 - 8.0 [facility] PO[facility] T [facility] Protein, UA Negative . mg/dL [facility] PO INT OF CARE Urobilinogen, UA 0.2 0.2 - 1.0 E.U./dL [facility] POINT [facility] CARE Nitrite, UA Negative . [facility] PO INT OF CARE Leuk Esterase Negative Negative [facility] POINT OF CARE Comment [facility] POIN T [facility] Urine URINE SPECIMEN COLLECTION, CLEAN CATCH / Unknown 07/28/2021 us Chapo Jonas MD POINT OF CARE TEST ORDERABLES F inal Result Performing Organization Address [facility] Co de Phone Number [facility] POINT OF CARE documented in this encounter Visit Diagnoses Diagnosis Annual physical exam- Primary Routine general medical examination at a health care facility Dysuria documented in this encounter Care Teams Director Geothermal Operations Relationship Specialty Start Date End Date Chapo Jonas MD [address] [place] [phone] PCP - General 07/25/19 documented as of this encounter
--- OUTSIDE RECORDS SUMMARY | 2024-09-13 16:16 | XMS_ITS | Encounter Summary ---
Author Organization [facility] Address [address] [place] [address] Care Team Providers Care Metal Products Fabricator Assembler Name Role Phone Chapo Jonas MD Primary Care Provider [phone] Reason for Visit * Reason Comments Migraine Encounter Details Date Type Department Care Team (Late st Contact Info) Description 02/27/2021 13:30 EDT Telemedicine [facility] [place] Family Medicine - [place] [address] [place] [phone] Chapo Jonas MD [address] [place] [phone] Other migraine without status migrainosus, not intractable (Primary Dx); Mild episode of recurrent major depressive disorder ([facility]) Social History Tobacco Use Types Packs/Day Years [...] Sign Reading Time Taken Comments Blood Pressure - - Pulse - - Temperature - - Respiratory Rate - - Oxygen Saturation - - Inhaled Oxygen Concentration - - Weight 56.7 kg (125 lb) 02/27/2021 1343 EDT Height - - Body Mass Index 19.01 08/10/2019 1412 EST documented in this encounter Ordered Prescriptions Prescription Sig Dispense Quantity Refills Last Filled Start Date End Date metoclopramide HCl (REGLAN) 10 mg tablet Take 1 Tablet by mouth 2 times daily. 10 Tablet 3 02/27/2021 04/13/2022 documented in this encounter Progress Notes * Chapo Jonas MD - 02/27/2021 1330 EDT [facility] [place] [place] Video Visit Today's visit was provided through telemedicine video conferencing: Zoom The location of the patient: [place] The location of the provider: [place] Verbal consent: The concept of ???Telemedicine?? has been described to the patient.Patient has been informed of the anticipated benefits and possible risks. Patient understands the information provided regarding telemedicine, has had the opportunity to ask questions about this information, and all questions have been answered to patient???s satisfaction. Patient consents for the use of telemedicine in his/her medical care and authorizes the transmission of any relevant medical information to providers and their staff involved in patient???s medical or mental health care. Verbal consent obtained by myself or auxiliary staff: {YES Subjective: Chief Complaint(s): Migranes HPI: Migrane headaches and some depression. 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 Some stress related to both work/shifts and relationship issues with spouse; they are seeing a counselor. She has never be treated for depression with prescription medications. Migranes have been worse- once every 3-4 weeks. Reglan 10 helps at times. She is using [place] Wort. I have reviewed patient's tobacco history: reports that she has never smoked. She has never used smokeless tobacco. I have reviewed current problem list and current medications. Examination: Home Vitals: There were no vitals taken for this visit. Lab Results Component Value Date CREATININE 0.77 08/04/2018 Lab Results Component Value Date NA 137 08/04/2018 K 4.4 08/04/2018 CL 102 08/04/2018 CO2 26 08/04/2018 Lab Results Component Value Date HGB 12.9 08/04/2018 MCV 93.8 08/04/2018 PLT 193 08/04/2018 Data reviewed with patient: Assessment & Plan: Headaches - Reglan 10 mg as needed. May consider using with benadryl or Claritin for H flavio effect, plus tylenol to arrest migranes. Consider starting 5-HTP for mood 50- 100 daily. Follow up with me in a couple weeks. She is agreeable. I spent a total of 22 minutes on the date of this encounter meeting with the patient and reviewing documentation/coordinating care as described in the above note. The following individuals and their role did participate in today's encounter visit: Provider: Chapo Jonas MD * Essence Alaniz, RN - 02/27/2021 1330 EDT Breanna consents to televideo apt with Dr. Jnoas today to discuss migraines. documented in this encounter Plan of Treatment Upcoming Encounters Date Type Department Care Team (Late st Contact Info) Description 09/18/2024 9:45 EST Office Visit [address] [address] Chapo Jonas MD [address] [place] [phone] 06/18/2025 9:00 EDT Office Visit [address] [address] Chapo Jonas MD [address] [place] [address] [phone] documented as of this encounter Visit Diagnoses Diagnosis Other migraine without status migrainosus, not intractable- Primary Mild episode of recurrent major depressive disorder ([facility]) documented in this encounter Care Teams Metal Products Fabricator Assembler Relationship Specialty Start Date End Date Chapo Jonas MD [address] [place] [address] [phone] PCP - General 07/25/19 documented as of this encounter
--- OUTSIDE RECORDS SUMMARY | 2024-09-13 16:16 | XMS_ITS | Encounter Summary ---
Author Organization [facility] Address [address] [place] [address] Care Team Providers Care Heel Seat Laster Name Role Phone Chapo Jonas MD Primary Care Provider [phone] Encounter Details Date Type Department Care Team (Late st Contact Info) Description 05/21/2022 Telephone [facility] Family Medicine - [place] [address] [place] [address] Chapo Jonas MD [address] [place] [phone] Social History Tobacco Use Types Packs/Day Years [...] Info) Description 09/18/2024 9:45 EST Office Visit [address] [address] Chapo Jonas MD [address] [place] [phone] 06/18/2025 9:00 EDT Office Visit [address] [address] Cahpo Jonas MD [address] [place] [phone] documented as of this encounter Visit Diagnoses Not on filedocumented in this encounter Care Teams Heel Seat Laster Relationship Specialty Start Date End Date Chapo Jonas MD [address] [place] [address] [phone] PCP - General 07/25/19 documented as of this encounter
--- OUTSIDE RECORDS SUMMARY | 2024-09-13 16:16 | XMS_ITS | Encounter Summary ---
Author Organization [facility] Address [address] [place] [address] Care Team Providers Care Kelly Machine Operator Name Role Phone Chapo Jonas MD Primary Care Provider Reason for Visit * Reason Comments Depression Follow-up Encounter Details Date Type Department Care Team (Late st Contact Info) Description 07/11/2023 15:15 EST Office Visit [facility] Family Medicine - [place] [address] [place] [phone] Chapo Jonas MD [address] [place] [phone] Mild episode of recurrent major depressive disorder (HCC-CMS) (Primary Dx) Social History Tobacco Use Types [...] Sign Reading Time Taken Comments Blood Pressure 118/66 07/11/2023 1529 EST Pulse 71 07/11/2023 1529 EST Temperature 36.7 ??C (98.1 ??F) 07/11/2023 1529 EST Respiratory Rate 18 07/11/2023 1529 EST Oxygen Saturation 100% 07/11/2023 1529 EST Inhaled Oxygen Concentration - - Weight 59.4 kg (131 lb) 07/11/2023 1529 EST Height - - Body Mass Index 19.35 [...] Progress Notes * Chapo Jonas MD - 07/11/2023 1515 EST Subjective: Patient ID: Breanna Bean is an 37 y.o. female. Chief Complaint Patient presents with ??? Depression ??? Follow-up HPI Depression - symptoms present on and off over the past several year. As of recently, she has been having daily depressive symptoms and low level anxiety. Mild anxiety symptoms, although symptoms seemto be mostly depressive in nature. She has been on 5-htp residential. Mother with history of depression and taking Cymbalta (?) and Wellbutrin. We started low dose Wellburtrin about 3 weeks ago. No adverse effects at the moment. ?? Past Medical History: Diagnosis Date ??? Anxiety ??? Depression Current Outpatient Medications on File Prior to Visit Medication Sig Dispense Refill ??? albuterol 90 mcg/actuation inhaler Inhale 2 Puffs as directed every 4 hours as needed for Wheezing. (Patient not taking: Reported on 06/16/2023) 1 Each 3 ??? buPROPion (WELLBUTRIN) 75 mg tablet Take 1 Tablet by mouth daily for 30 days. 30 Tablet 3 ??? CANNABIDIOL, CBD, EXTRACT ORAL Take 50 mg by mouth daily. (Patient not taking: Reported on 02/27/2021) ??? ELDERBERRY FRUIT ORAL Take 1 Drop by mouth. (Patient not taking: Reported on 07/11/2023) ??? estradioL (ESTRACE) 0.01 % (0.1 mg/gram) [...] medication - -, Sig: Alive multi gummy (Patient not taking: Reported on 07/11/2023) No current facility-administered medications on file prior to visit. No Known Allergies Social Social History Tobacco Use ??? Smoking status: Never ??? Smokeless tobacco: Never Vaping Use ??? Vaping Use: Never used Substance Use Topics ??? Alcohol use: Yes Comment: Occasional ??? Drug use: Yes Types: Marijuana Comment: Occasional ROS - See HPI Objective: BP 118/66 Pulse 71 Temp 36.7 ??C (98.1 ??F) (Oral) Resp 18 Wt 59.4 kg (131 lb) SpO2 100% BMI 19.35 kg/m?? Physical Exam Gen: Alert and oriented. No distress Psychiatric: normal mood and affect. Assessment: Depression - Continue Wellbutrin 75 for now. Follow up with me in 3-6 weeks or sooner with any issues. I spent a total of 22 minutes on the date of this encounter meeting with the patient and reviewing documentation/coordinating care as described in the above note. Plan: Breanna was seen today for depression and follow-up. Diagnoses and all orders for this visit: Mild episode of recurrent major depressive disorder (HCC-CMS) No follow-ups on file. documented in this encounter Plan of Treatment Upcoming Encounters Date Type Department Care Team (Late st Contact Info) Description 09/18/2024 9:45 EST Office Visit [address] [address] Chapo Jonas MD [address] [place] [address] [phone] 06/18/2025 9:00 EDT Office Visit [address] [address] Chapo Jonas MD [address] [place] [phone] documented as of this encounter Visit Diagnoses Diagnosis Mild episode of recurrent major depressive disorder (HCC-CMS)- Primary documented in this encounter Care Teams Kelly Machine Operator Relationship Specialty Start Date End Date Chapo Jonas MD [address] [place] [address] [phone] PCP - General 07/25/19 documented as of this encounter
--- OUTSIDE RECORDS SUMMARY | 2024-09-13 16:16 | XMS_ITS | Encounter Summary ---
Author Organization [facility] Address [address] [place] [address] Care Team Providers Care Distribution Technician Name Role Phone Chapo Jonas MD Primary Care Provider Reason for Visit * Reason Comments Bloated Follow-up Depression Encounter Details Date Type Department Care Team (Late st Contact Info) Description 08/12/2023 13:15 EST Telemedicine [facility] Family Medicine - [place] [address] [place] [phone] Chapo Jonas MD [address] [place] [phone] Mild episode of recurrent major depressive disorder (HCC-CMS) (Primary Dx); Osteopenia of necks of both femurs; Bloating Social History Tobacco Use Types Packs/Day Years [...] mouth 3 times daily. 90 Tablet 2 08/12/2023 12/18/2023 documented in this encounter Progress Notes * Chapo Jonas MD - 08/12/[address] [facility] Telephone Visit Today's visit was provided via telephone audio only. The location of the patient: Home The location of the provider: Office Verbal consent: The concept of ???Telemedicine?? has been described to the patient. Patient has been informed of the anticipated benefits and possible risks. Patient understands the information provided regarding telemedicine, has had the opportunity to ask questions about this information, and all questions havebeen answered to patient???s satisfaction. Patient consents for the use of telemedicine in his/her medical care and authorizes the transmission of any relevant medical information to providers and their staff involved in patient???s medical or mental health care. Verbal consent obtained by myself or auxiliary staff: yes. I have determined that an audio-only visit is appropriate due to: Patient request due to travel and safety concerns Subjective: Chief Complaint(s): No chief complaint on file. HPI: Mood depression- Breanna has been doing well with short acting Wellbutrin 75 mg in the am. She has noticed improvement with mood. She would like to continue Wellbutrin for now. Osteopenia - noted 06/20 DEXA. This is an improvement from Dexa done in 2010 during a study. She has been taking Calcium citrate and magnesium. Bloating - present, sound to be medical terminologist. She has recently started digestive enzymes, which has helped. I have reviewed patient's tobacco history: reports that she has never smoked. She has never used smokeless tobacco. I have reviewed current problem list and current medications. ROS: As per HPI Assessment & Plan: Depression - continue Wellbutrin. Follow up 4-6 mo Osteopenia - plan for repeat DEXA 2 years. Bloating - improved with digestive enzymes. Patient initiated phone contact with the office: yes. Patient is an established patient (parent, guardian) yes. E/M provided within previous 7 days for same medical assessment: yes Anticipate E/M service within 24hrs or next available urgent appointment yes. This visit was conducted by telephone. A total of 22 minutes was spent on this encounter on the dayof this encounter. Chapo Jonas MD documented in this encounter Plan of Treatment Upcoming Encounters Date Type Department Care Team (Late st Contact Info) Description 09/18/2024 9:45 EST Office Visit [address] [address] Chapo Jonas MD [address] [place] [phone] 06/18/2025 9:00 EDT Office Visit [address] [address] Chapo Jonas MD [address] [place] [address] [phone] documented as of this encounter Visit Diagnoses Diagnosis Mild episode of recurrent major depressive disorder ([facility])- Primary Osteopenia of necks of both femurs Bloating Flatulence, eructation, and gas pain documented in this encounter Care Teams Distribution Technician Relationship Specialty Start Date End Date Chapo Jonas MD [address] [place] [phone] PCP - General 07/25/19 documented as of this encounter
--- OUTSIDE RECORDS SUMMARY | 2024-09-13 16:16 | XMS_ITS | Encounter Summary ---
Author Organization [facility] Address [address] [place] [address] Care Team Providers Care Lineman A Class Name Role Phone Beatrice Shelley MD Primary Care Provide r Unavailable Encounter Details Date Type Department Care Team (Late st Contact Info) Description 10/13/2017 Orders Only Non [facility] Ancillary Services Chapo Jonas MD [address] [place] [address] [phone] Personal history of other diseases of the digestive system (CODE) (Primary Dx) Social History Tobacco Use Types [...] Info) Description 09/18/2024 9:45 EST Office Visit [address] [address] Chapo Jonas MD [address] [place] [address] [phone] 06/18/2025 9:00 EDT Office Visit [address] [address] Chapo Jonas MD [address] [place] [phone] documented as of this encounter Visit Diagnoses Diagnosis Personal history of other diseases of the digestive system (CODE)- Primary documented in this encounter Care Teams Lineman A Class Relationship Specialty Start Date End Date Beatrice Shelley MD PCP - General 10/11/17 documented as of this encounter
--- OUTSIDE RECORDS SUMMARY | 2024-09-13 16:16 | XMS_ITS | Encounter Summary ---
Author Organization [facility] Address [address] [place] [address] Care Team Providers Care Information Coder Name Role Phone Chapo Jonas MD Primary Care Provider Reason for Visit * Reason Comments Follow-up Encounter Details Date Type Department Care Team (Late st Contact Info) Description 01/06/2024 13:15 EDT Office Visit [facility] Family Medicine - [place] [address] [place] [phone] Chapo Jonas MD [address] [place] [phone] Mild episode of recurrent major depressive disorder [...] Sign Reading Time Taken Comments Blood Pressure 106/70 01/06/2024 1315 EDT Pulse 84 01/06/2024 1315 EDT Temperature - - Respiratory Rate 16 01/06/2024 1315 EDT Oxygen Saturation 100% 01/06/2024 1315 EDT Inhaled Oxygen Concentration - - Weight 59.6 kg (131 lb 6.4 oz) 01/06/2024 1315 E DT Height - - Body Mass Index 19.4 07/28/2021 1416 EST documented in this encounter [...] Progress Notes * Chapo Jonas MD - 01/06/2024 1315 EDT Subjective: Patient ID: Breanna West is an 38 y.o. female. Depression HPI Depression - symptoms present on and off over the past several year. As of recently, she has been having daily depressive symptoms and low level anxiety. Mild anxiety symptoms, although symptoms seemto be mostly depressive in nature. She has been on 5-htp supervisor intermediates. She has been on low dose wellbutrin over the past few months, be she has a new job; she is doing well; she would like to stop wellbutrin at this time. Mammo 11/19 Lab Results Component Value Date CREATININE 0.68 07/28/2021 Lab Results Component Value Date NA 138 07/28/2021 K 4.1 07/28/2021 CL 100 07/28/2021 CO2 29 07/28/2021 Past Medical History: Diagnosis Date Anxiety Depression [...] Take 1 Tablet by mouth at bedtime. NURTEC ODT 75 mg tablet,disintegrating PRN omeprazole (PRILOSEC) 40 mg capsule Take 1 capsule by mouth daily. (Patient not taking: Reported on06/16/2023) 30 capsule 3 No current facility-administered medications on file prior to visit. No Known Allergies Social Social History Tobacco Use Smoking status: Never Smokeless tobacco: Never Vaping Use Vaping status: Never Used Substance Use Topics Alcohol use: Yes Comment: Occasional Drug use: Yes Types: Marijuana Comment: Occasional ROS - See HPI Objective: BP 106/70 (BP Cuff Location: Right arm, BP Patient Position: Sitting, BP Cuff Sizes: Adult, long) Pulse 84 Resp 16 Wt 59.6 kg (131 lb 6.4 oz) SpO2 100% BMI 19.40 kg/m?? Wt Readings from Last 3 Encounters: 01/06/24 59.6 kg (131 lb 6.4 oz) 07/11/23 59.4 kg (131 lb) 06/16/23 59.4 kg (131 lb) BP Readings from Last 3 Encounters: 01/06/24 106/70 07/11/23 118/66 06/16/23 122/70 Physical Exam Gen: Alert and oriented. No distress Psychiatric: normal mood and affect. Assessment: Depression - stopping wellbutrin. Call with any issues. Follow up 6-12 mo. I spent a total of 31 minutes on the date of this encounter meeting with the patient and reviewing documentation/coordinating care as described in the above note. Plan: Diagnoses and all orders for this visit: Mild episode of recurrent major depressive disorder (HCC-CMS) No follow-ups on file. documented in this encounter Plan of Treatment Upcoming Encounters Date Type Department Care Team (Late st Contact Info) Description 09/18/2024 9:45 EST Office Visit [facility] Family Medicine [address] [phone] Chapo Jonas MD [address] [place] [address] [phone] 06/18/2025 9:00 EDT Office Visit [facility] - [place] [address] [place] [address] [phone] Chapo Jonas MD [address] [place] [address] [phone] documented as of this encounter Visit Diagnoses Diagnosis Mild episode of recurrent major depressive disorder ([facility]-CMS)- Primary documented in this encounter Discontinued Medications Medication Sig Discontinue Reason Start Date End Da te UNABLE TO FIND Hair, Skin, & Nails Gummies Multiple Vitamins tablet, chewable, Si tab(s) chewed once a day Patient stopped taking (will not send dc message to pharm) 01/06/2024 UNABLE TO FIND Other medication - -, Sig: Ashley tonic (urbon moonshine) 2-3 mL Patient stopped taking (will not send dc message to pharm) 01/06/2024 UNABLE TO FIND Other medication - -, Sig: Lions natty tincture 2 drops Patient stopped taking (will not send dc message to pharm) 01/06/2024 UNABLE TO FIND Other medication - -, Sig: Alive calcium 4 D gummy Patient stopped taking (will not send dc message to pharm) 01/06/2024 UNABLE TO FIND Other medication - -, Sig: Alive multi gummy Patient stopped taking (will not send dc message to pharm) 01/06/2024 buPROPion (WELLBUTRIN) 75 mg tablet Take 1 Tablet by mouth 3 times daily. Error 12/22/2023 01/06/2024 documented as of this encounter Care Teams Information Coder Relationship Specialty Start Date End Date Chapo Jonas MD [address] [place] [address] [phone] PCP - General 07/25/19 documented as of this encounter
--- OUTSIDE RECORDS SUMMARY | 2024-09-13 16:16 | XMS_ITS | Encounter Summary ---
Author Organization [facility] Address [address] [place] [address] Care Team Providers Care Lurer Name Role Phone Chapo Jonas MD Primary Care Provider [phone] Reason for Visit * Reason Onset Date Comments Other 10/30/2021 Encounter Details Date Type Department Care Team (Late st Contact Info) Description 10/30/2021 Telephone [facility] Family Medicine - [place] [address] [place] [phone] Chapo Jonas MD [address] [place] [phone] Other Social History Tobacco Use Types Packs/Day [...] 07/28/2021 14:22 EST documented in this encounter Miscellaneous Notes * Telephone Encounter - Sandra Hollins RN - 10/30/2021 1327 EST Noted, will have pt go to lab at [facility]. Due to Shortage in Nurse visits and staffing at this time. Breanna is aware. * Telephone Encounter - Sandra Hollins RN - 10/30/2021 1153 EST H pylori breath test was ordered. Did you want a blood test? We do not do H- pylori breath tests in house. * Telephone Encounter - Sandra Hollins RN - 10/30/2021 1152 EST Chapo Jonas MD [facility] Nurse 26 minutes ago (11:24) Ok [place] or she can go to hospital. Message text * Telephone Encounter - Chris Sr LPN - 10/30/2021 1042 EST Patient requesting H Pylori test. Currently has stomach pain, gastric reflux. Please advise on scheduling a visit or ordering test. documented in this encounter Plan of Treatment Upcoming Encounters Date Type Department Care Team (Late st Contact Info) Description 09/18/2024 9:45 EST Office Visit [facility] Family Medicine - [address] [address] Chapo Jonas MD [address] [place] [address] [phone] 06/18/2025 9:00 EDT Office Visit [facility] Family Medicine - [address] [address] Chapo Jonas MD [address] [place] [address] [phone] documented as of this encounter Visit Diagnoses Diagnosis Gastroesophageal reflux disease without esophagitis- Primary Esophageal reflux documented in this encounter Care Teams Lurer Relationship Specialty Start Date End Date Chapo Jonas MD [address] [place] [phone] PCP - General 07/25/19 documented as of this encounter
--- OUTSIDE RECORDS SUMMARY | 2024-09-13 16:16 | XMS_ITS | Encounter Summary ---
Author Organization [facility] Address [address] [place] [address] Care Team Providers Care Vp Platforms Name Role Phone Beatrice Shelley MD Primary Care Provide r Unavailable Encounter Details Date Type Department Care Team (Latest Contact Info) Description 01/26/2019 15:15 EDT - 01/26/2019 23:59 EDT Hospital Encounter [address] [address] Beatrice Shelley MD Discharge Disposition: Home or Self Care Social History Tobacco Use Types Packs/Day Years Used Date Smoking Tobacco: Never Assessed Comments Unknown Sex and Gender Information Value Date Recorded Sex Assigned at Not on file Legal Sex Female 14:58 EST Gender Identity Female 08/09/2019 13:13 EST Sexual Orientation Not on file documented as of this encounter Discharge Disposition Disposition Code Departure Means Destination Home or Self Long Term documented in this encounter Plan of Treatment Upcoming Encounters Date Type Department Care Team (Late st Contact Info) Description 09/18/2024 9:45 EST Office Visit [facility] Family [address] [address] Chapo Jonas MD [address] [place] [address] [phone] 06/18/2025 9:00 EDT Office Visit [address] [address] Chapo Jonas MD [address] [place] [phone] documented as of this encounter Visit Diagnoses Not on filedocumented in this encounter Care Teams Vp Platforms Relationship Specialty Start Date End Date Beatrice Shelley MD PCP - General 10/11/17 documented as of this encounter
--- OUTSIDE RECORDS SUMMARY | 2024-09-13 16:16 | XMS_ITS | Encounter Summary ---
Author Organization [facility] Address [address] [place] [address] Care Team Providers Care Nuisance Animal Damage Control Agent Name Role Phone Chapo Jonas MD Primary Care Provider Reason for Visit * Reason Comments Depression Encounter Details Date Type Department Care Team (Late st Contact Info) Description 09/29/2021 16:30 EST Telemedicine [facility] Family Medicine - [place] [address] [place] [phone] Chapo Jonas MD [address] [place] [address] [phone] Mild episode of recurrent major depressive disorder (HCC) (Primary Dx) Social History Tobacco Use Types [...] Progress Notes * Chapo Jonas MD - 09/29/2021 1630 EST [facility] Telephone Visit Today's visit was provided via telephone audio only. The location of the patient: H The [...] obtained by myself or auxiliary staff: {YES I have determined that an audio-only visit is appropriate due to: Chief Complaint(s): Depression HPI: Using 5htp twice daily. Symptoms persist. No SI/HI. She really does not want to start Lexapro. ROS: Objective: Examination: Data reviewed with patient: Assessment & Plan: Depression - increase 5htp for now. Lexapro 5 mg if symptoms persist. She will call with any issues. I spent a total of 22 minutes on the date of this encounter meeting with the patient and reviewing documentation/coordinating care as described in the above note. Patient initiated phone contact with the office: {YES Patient is an established patient (parent, guardian) {YES E/M provided within previous 7 days for same medical assessment: {YES Anticipate E/M service within 24hrs or next available urgent appointment {YES. documented in this encounter Plan of Treatment Upcoming Encounters Date Type Department Care Team (Late st Contact Info) Description 09/18/2024 9:45 EST Office Visit [facility] Family Medicine - [address] [address] Chapo Jonas MD [address] [place] [address] [phone] 06/18/2025 9:00 EDT Office Visit [facility] Family Medicine - [place] [address] [place] [phone] Chapo Jonas MD [address] [place] [address] [phone] documented as of this encounter Visit Diagnoses Diagnosis Mild episode of recurrent major depressive disorder (HCC-CMS)- Primary documented in this encounter Care Teams Nuisance Animal Damage Control Agent Relationship Specialty Start Date End Date Chapo Jonas MD [address] [place] [address] [phone] PCP - General 07/25/19 documented as of this encounter
--- OUTSIDE RECORDS SUMMARY | 2024-09-13 16:16 | XMS_ITS | Encounter Summary ---
Author Organization [facility] Address [address] [place] [address] Care Team Providers Care Dispatcher Ship Pilot Name Role Phone Beatrice Shelley MD Primary Care Provide r Unavailable Encounter Details Date Type Department Care Team (Late st Contact Info) Description 10/24/2017 Historical Results Only [facility] Lab - Main [address] [address] Chapo Jonas MD [address] [place] [address] [phone] Social History Tobacco Use Types Packs/Day Years [...] Description 09/18/2024 9:45 EST Office Visit [address] [phone] Chapo Jonas MD [address] [place] [address] [phone] 06/18/2025 9:00 EDT Office Visit [address] [phone] Chapo Jonas MD [address] [place] [phone] documented as of this encounter Procedures Procedure Name Priority Date/Time Associated Diagnosis Comments VIT D, 25-HYDROXY - [facility] Routine 10/24/2017 9:19 EST COMPLETE BLOOD COUNT WITH DIFFERENTIAL (AUTO) Routine 10/24/2017 9:19 EST QUANTIFERON TB GOLD PLUS Routine 10/24/2017 9:19 EST TSH Routine 10/24/2017 9:19 EST COMPREHENSIVE METABOLIC PANEL (CMP) Routine 10/24/2017 9:19 EST documented in this encounter Results * COMPREHENSIVE METABOLIC PANEL (CMP) (10/24/2017 9:19 EST) Albumin % 4.4 3.4 - 4.9 g/dL 10/24/2017 10:19 [facility] ALKALINE PHOSPHATASE - [facility] 42 38 - 126 U/L 10/24/2017 10:19 [facility] BILIRUBIN TOTAL 0.7 0.2 - 1.3 mg/dL 10/24/2017 10:19 [facility] BUN - [facility] 10 10 - 26 mg/dL 10/24/2017 10:19 [facility] CALCIUM - [facility] 9.8 8.5 - 10.5 mg/dL 10/24/2017 10:19 [facility] Chloride 105 96 - 110 mmol/L 10/24/2017 10:19 [facility] CO2 Total 27 22 - 32 mEq/L 10/24/2017 10:19 [facility] CREATININE 0.79 0.52 - 1.04 mg/dL 10/24/2017 10:19 [facility] eGFR >60 10/24/2017 10:19 [facility] Comment: Chronic renal impairment is defined as GFR <60 Multiply result by 1.210 for patients. eGFR calculated using the IDMS-traceable MDRD Study Equation. ??(effective 07/01/2014) Anion Gap 8 0 - 18 10/24/2017 10:19 [facility] GLUCOSE - [facility] 83 70 - 100 mg/dL 10/24/2017 10:19 [facility] Potassium 4.2 3.5 - 5.0 mEq/L 10/24/2017 10:19 [facility] Sodium 140 136 - 145 mEq/L 10/24/2017 10:19 [facility] TOTAL PROTEIN - [facility] 7.3 6.2 - 8.2 gm/dL 10/24/2017 10:19 [facility] SGOT/AST - [facility] 26 14 - 36 U/L 10/24/2017 10:19 [facility] SGPT/ALT - [facility] 27 9 - 52 U/L 8 10:19 [facility] 10/24/2017 9:19 EST 10/24/2017 9:19 EST Narrative [facility] - 10/24/2017 10:19 EST Does PT Have a Latex Allergy? NO us Chapo Jonas MD CHEMISTRY & BLOOD GAS ORDERABLE S Final Result [facility] * VIT D, 25-HYDROXY - [facility] (10/24/2017 9:19 EST) VIT D, 25 HYDROXY - [facility] 47.3 30 - 100 ng/ml 10/24/2017 10:46 [facility] Comment: ? 25-Hydroxy D Total (D2+D3) ?Expected Values Deficient: ?<20 ng/ml Insufficient: ? 20- <30 ng/ml Sufficient: ? 30-100 ng/ml Potential intoxication: >100 ng/ml 10/24/2017 9:19 EST 10/24/2017 9:19 EST Narrative [facility] - 10/24/2017 10:46 EST Does PT Have a Latex Allergy? NO us Chapo Jonas MD CHEMISTRY & BLOOD GAS ORDERABLE S Final Result [facility] * TSH (10/24/2017 9:19 EST) THYROID STIM HORMONE - [facility] 1.57 0.46 - 4.68 uIU/ml 10/24/2017 10:46 [facility] 10/24/2017 9:19 EST 10/24/2017 9:19 EST Juni [facility] - 10/24/2017 10:46 EST Does PT Have a Latex Allergy? NO us Chapo Jonas MD CHEMISTRY & BLOOD GAS ORDERABLE S Final Result Performing Organization Address [facility] Co de Phone Number [facility] * (ABNORMAL) COMPLETE BLOOD COUNT WITH DIFFERENTIAL (AUTO) (10/24/2017 9:19 EST) Pathologist [facility] ABSOLUTE NEUTROPHIL COUN - [facility] 1.83 1.7 - 7.0 10e3/ul 10/24/2017 10:11 [facility] BASO # - [facility] 0.03 0.0 - 0.3 10e3/uL 10/24/2017 10:11 [facility] BASO % - [facility] 1 0 - 2 % 10/24/2017 10:11 [facility] EOS # - [facility] 0.07 0.05 - 0.5 10e3/uL 10/24/2017 10:11 [facility] EOS % - [facility] 2 0 - 5 % 10/24/2017 10:11 [facility] GRAN % - [facility] 46 40 - 80 % 10/24/2017 10:11 [facility] HEMATOCRIT - CV 39.1 34.0 - 47.0 % 10/24/2017 10:11 [facility] HEMOGLOBIN - CV 13.0 11.2 - 15.7 g/dl 10/24/2017 10:11 [facility] IG# - [facility] 0 0 - 0.07 10e3/uL 10/24/2017 10:11 [facility] IG% - [facility] 0 0 - 0.9 % 10/24/2017 10:11 [facility] LYMPH # - [facility] 1.76 0.9 - 2.9 10e3/uL 10/24/2017 10:11 [facility] LYMPH% - [facility] 44(H) 20 - 40 % 10/24/2017 10:11 [facility] MEAN CORPUSCULAR HGB - [facility] 31.1 26 - 34 pg 10/24/2017 10:11 [facility] MEAN CORPUSCULAR HGB CONC - [facility] 33.2 31 - 36 g/dL 10/24/2017 10:11 [facility] MEAN CELL VOLUME - [facility] 93.5 77 - 100 fl 10/24/2017 10:11 [facility] MONO # - [facility] 0.28(L) 0.3 - 0.9 10e3/uL 10/24/2017 10:11 [facility] MONO% - [facility] 7 0 - 12 % 10/24/2017 10:11 [facility] PLATELET COUNT 176 150 - 400 10e3/ul 10/24/2017 10:11 [facility] RED BLOOD COUNT - [facility] 4.18 3.8 - 5.2 10e6/ul 10/24/2017 10:11 [facility] RED CELL DISTRI WIDTH - [facility] 12.6 11.8 - 15.6 % 10/24/2017 10:11 [facility] WHITE BLOOD COUNT - [facility] 4.0 3.5 - 10.5 10e3/ul 10/24/2017 10:11 [facility] 10/24/2017 9:19 EST 10/24/2017 9:19 [facility] - 10/24/2017 10:11 EST Does PT Have a Latex Allergy? NO us Chapo Jonas MD HEMATOLOGY & PF4 ORDERABLES Fin al Result [facility] * QUANTIFERON TB GOLD PLUS (10/24/2017 9:19 EST) Quantiferon Interpretation Negative NEGAT 10/26/2017 21:11 EST [facility] Comment: Reference Range: Negative Resuls were obtained with the [employer] QuantiFERON-TB Gold VIRGEN. Test Performed by: [place] [address] Buckle Sewer: Chris Henao MD , Ph D M.TUBERCULOSIS ANTIGEN - [facility] 0.02 () IU/mL 10/26/2017 21:11 [facility] Comment: This is a qualitative test. ??The TB antigen IU/mL value is required for documentation on certain government reporting forms (e.g., Form I-693), but the magnitude of this value cannot be correlated to stage or degree of infection, level of immune responsiveness, or likelihood for progression to active disease. Diagnosing or excluding tuberculosis disease, and assessing the probability of LTBI, requires a combination of epidemiological, historical, medical, and diagnostic findings that should be taken into account when interpreting QuantiFERON-TB results. 10/24/2017 9:19 EST 10/24/2017 9:20 EST Narrative [facility] - 10/26/2017 21:11 EST Does PT Have a Latex Allergy? NO us Chapo Jonas MD CHEMISTRY & BLOOD GAS ORDERABLE S Final Result [facility] documented in this encounter Visit Diagnoses Not on filedocumented in this encounter Care Teams Dispatcher Ship Pilot Relationship Specialty Start Date End Date Beatrice Shelley MD PCP - General 10/11/17 documented as of this encounter
[2024-09-13 16:36] LABS: BE (Venous) 1 mmol/L (-2-3); HCO3 (Venous) 26 mmol/L (23-28); O2 Sat (Venous) 82 %; TCO2 (Venous) 23 mmol/L (24-29); pCO2 (Venous) 41 mmHg (41-51); pH (Venous) 7.41 (7.31-7.41); pO2 (Venous) 45 mmHg
[2024-09-13 16:38] LABS: Abs Immature Grans 0.02 10^3/uL (0.0-0.06); Absolute Basophil Count 0.04 10^3/uL (0.0-0.2); Absolute Eosinophil Count 0.09 10^3/uL (0.0-0.7); Absolute Lymphocyte Count 2.17 10^3/uL (1.2-3.4); Absolute Neutrophil Count 4.16 10^3/uL (1.2-6.7); Basophils % 0.6 %; Eosinophils % 1.3 %; HCT 39.5 % (36.0-46.0); HGB 13.2 g/dL (11.2-15.7); Immature Grans % 0.3 %; Lymphocytes % 30.2 %; MCH 31.1 pg (27.0-33.0); MCHC 33.4 % (32.0-36.0); MCV 93 fL (80-95); MPV 9.7 fL (8.0-11.0); Monocytes % 9.7 %; Neutrophils % 57.9 %; Platelet Count 261 10^3/uL (130-400); RBC 4.25 10^6/uL (3.93-5.22); RDW 12.3 % (11.7-14.6); RDW-SD 41.7 fL; WBC 7.18 10^3/uL (4.4-10.8)
[2024-09-13] MEDS: Normal Saline - Diluent 50 ML VIAL IJ (16:40)
[2024-09-13 16:51] LABS: PTT Activated 25.3 sec (20.6-30.2); Prothrombin Time 10.2 sec (9.1-11.1)
[2024-09-13 16:56] LABS: HCG Qual (Serum) Negative
[2024-09-13 17:00] LABS: ALT 19 U/L (14-59); AST 17 U/L (15-37); Alkaline Phosphatase 58 U/L (46-116); Anion Gap 6.5 mmol/L (3-11); BUN 11 mg/dL (7-18); Bilirubin, Total 0.44 mg/dL (0.2-1.0); CO2 27.5 mmol/L (21.0-32.0); CREATININE 0.9 mg/dL (0.55-1.02); Calcium 8.6 mg/dL (8.5-10.1); Chloride 105 mmol/L (98-107); Estimated GFR 82.88 (mL/min/1.73m2); Glucose 92 mg/dL (74-106); Magnesium 1.9 mg/dL (1.8-2.4); Potassium 3.9 mmol/L (3.5-5.1); Sodium 139 mmol/L (136-145); Total Protein 7.4 g/dL (6.4-8.2)
[2024-09-13 17:14] LABS: COVID-19 PCR Negative (Negative); Influenza A PCR Negative (Negative); Influenza B PCR Negative (Negative); RSV PCR Negative (Negative); Source NASOPHARYNX
[2024-09-13 17:55] LABS: D-Dimer 170 ng/mlFEU (<500)
--- NOTE | 2024-09-13 18:00 | RT.EKG_ITS ---
APPROVED REPORT Exam: Resting ECG Reason for Exam: SOB Patient Location: E HR:84 bpm ECG Measurements Heart Rate 84 AXIS PA 133 P 71 QRSd 96 QRS 69 QT 368 T -20 QTc 436 Conclusion Sinus rhythm 84 normal axis TWI V3 no stemi
[2024-09-13] MEDS: Acetaminophen 500 MG TAB 1000 MG PO (18:21)
[2024-09-13 18:49] LABS: Lab Add On Test DONE
[2024-09-13 19:06] LABS: Troponin I 4 ng/L (<or=51)
[2024-09-13] MEDS: Dexamethasone 10 MG/ML VIAL 6 MG PO (19:18)
[2024-09-13 19:24] VITALS: BP 156/82; PULSE 67; RESP 18; O2SAT 98
== END 2024-09-13 19:25 | disposition home or self-care (01) ==
PROVIDERS: Emergency Provider Registered Nurse Emergency; PCP Family Medicine
DX: R06.02 Shortness of breath (principal); R55 Syncope and collapse; R00.0 Tachycardia, unspecified; I10 Essential (primary) hypertension; E78.5 Hyperlipidemia, unspecified
CPT/HCPCS: 36415; 80053; 82805; 87637; 87880; 93005; 99285; 83735; 84484; 84703; 85025; 85379; 85610; 85730; 87081; 93010; 99284; J1100

== ENCOUNTER 2024-09-13 17:20 | Outpatient (CLI) | payer OTHER, SELFPAY ==
--- NOTE | 2024-09-13 14:15 | DI.RAD_ITS ---
Exam(s) XR CHEST 2V PA LATERAL EXAM: XR CHEST 2V PA LATERAL CLINICAL HISTORY: J18.9 LLL pneumonia concerns TECHNIQUE: 2D digital imaging was performed. Two views. COMPARISON: No exams were available for comparison FINDINGS: HEART: Normal size. Aorta: Not dilated. PULMONARY VASCULATURE: Normal. MEDIASTINUM: Unremarkable. LUNGS: Clear. PLEURAL SPACE: No pleural effusion or pneumothorax. BONE:Biconvex thoracolumbar scoliosis. SOFT TISSUES: Unremarkable. IMPRESSION: No acute abnormality. DATA REPOSITORY: RADIATION DOSE DELIVERED:
== END 2024-09-13 17:40 ==
LOC: DI 17:20
PROVIDERS: PCP Family Medicine; Visit Provider Physician Assistant
DX: J18.9 Pneumonia, unspecified organism (principal)
CPT/HCPCS: 71046

== ENCOUNTER 2024-11-23 12:01 | Outpatient (CLI) | payer OTHER, SELFPAY ==
--- NOTE | 2024-11-23 | DI.MAMMO_ITS ---
Exam(s) MAMMO SCREENING EXAM: MAMMO SCREENING CLINICAL HISTORY: Z12.31 Screening. TECHNIQUE: Bilateral full field digital CC and MLO mammographic images were obtained with 3D tomosyn thesis and utilizing computer aided detection (CAD). COMPARISON: Prior baseline mammogram of October 1023 was reviewed. FINDINGS: The fibroglandular tissue pattern is again noted to be very dense, this decreasing the sensitivity ma mmogram for finding hidden underlying lesions. There are no new obvious left breast findings. In the right breast on the CC view there is a suggestion an asymmetric density-possible nodule locate d anteriorly, 2.5 cm from the nipple and measuring approximately 6 x 5 mm. Further imaging recommende d. There are no malignant-appearing microcalcification groups in this region or elsewhere in either [address]. There is no significant architectural distortion nor skin thickening-retraction. IMPRESSION: Very dense bilateral fibroglandular tissue. No radiographic evidence of malignancy in left breast. As ymmetric density-possible nodule anteriorly in the right breast as described above. Spot compression views and breast ultrasound recommended. BI-RADS Category 0 - Incomplete: Need additional imaging evaluation Breast Density - Category D - Extremely dense Breast density Category C or D implies that the patient has dense breast tissue. Dense breast tissue can make it harder to find cancer on a mammogram. Dense breast tissue is also associated with an incr eased risk of breast cancer. This information about the result of the mammogram report was provided to the patient to raise their awareness. Use this report when you speak with the patient about their risks for breast cancer, which includes their family history. At that time, you may recommend additional screening tests (Ultrasoun d or MRI) as these tests may add significant information. A negative radiographic report should not delay biopsy if a dominant or clinically suspicious mass is present. Up to ten percent of cancers are not identified on mammography. A negative report may reinforce clinical impression. Adenosis and dense breasts may obscure an underlying neoplasm. False positive reports average 6 to 10%. Patient will receive a letter notifying them of these results.
== END 2024-11-23 12:21 ==
LOC: DI 12:01
PROVIDERS: PCP Family Medicine; Visit Provider Obstetrics & Gynecology
DX: Z12.31 Encounter for screening mammogram for malignant neoplasm of breast (principal); R92.343 Mammographic extreme density, bilateral breasts
CPT/HCPCS: 77063; 77067

== ENCOUNTER 2024-11-23 16:10 | Outpatient (CLI) | payer OTHER, SELFPAY ==
[2024-11-24 22:35] LABS: Estradiol 26 pg/mL (See Note)
[2024-11-26 09:41] LABS: FSH 7.7 mIU/mL (See Note)
[2024-11-26 09:44] LABS: LH 2.8 mIU/mL (See Note)
[2024-12-01 14:06] LABS: Testosterone, Free 0.32 ng/dL (<0.13-0.98); Testosterone, Total 17 ng/dL (8-60)
== END 2024-11-23 16:11 | disposition home or self-care (01) ==
LOC: LBO 16:11
PROVIDERS: PCP Family Medicine; Visit Provider Obstetrics & Gynecology
DX: R68.82 Decreased libido (principal); M85.859 Other specified disorders of bone density and structure, unspecified thigh
CPT/HCPCS: 36415; 84402; 84403; 82670; 83001; 83002

== ENCOUNTER 2024-12-05 00:45 | Outpatient (CLI) | payer OTHER, SELFPAY ==
--- NOTE | 2024-12-05 | DI.US_ITS ---
Exam(s) MG MAMMO SCREEN CALL BACK UNI US BREAST RT LIMITED EXAM: MG MAMMO SCREEN CALL BACK UNI and U/S breast RT limited CLINICAL HISTORY: 6x5 mm asymmetric density/possible nodule anteriorly 2.5 cm from nipple, Rt. TECHNIQUE: Craniocaudal and mediolateral oblique Full Field Digital Mammography views of the right b reast with Computer Aided Diagnosis followed by Tomosynthesis and limited right breast ultrasound. COMPARISON: Comparison is made with prior examinations. FINDINGS: Mammography/Tomosynthesis: Masses/Architectural Distortion: The area of concern is again seen in the outer right breast. No dis crete mass is seen. It appears represent fibroglandular tissue. No areas of architectural distortio n are present. Microcalcifictions: No suspicious pleomorphic-type are seen. Skin Thickening/Nipple Retraction: None. Limited right breast US: The upper outer and lower outer quadrants of the right breast were evaluated sonographically. Echotexture: Normal appearance of the glandular tissue. Shadowing: No suspicious foci. Cyst: None. Solid lesions: None seen. Ductal dilation: None. IMPRESSION: 1. No evidence of malignancy is noted. 2. A six-month follow-up right mammogram is requested for re-evaluation. 3. The findings were discussed with the patient on the date of the examination. BI-RADS Category 3 - 6 month - Probably Benign Finding: Recommend follow-up imaging in 6 months Breast Density - Category D - Extremely dense Breast density Category C or D implies that the patient has dense breast tissue. Dense breast tissue can make it harder to find cancer on a mammogram. Dense breast tissue is also associated with an incr eased risk of breast cancer. This information about the result of the mammogram report was provided to the patient to raise their awareness. Use this report when you speak with the patient about their risks for breast cancer, which includes their family history. At that time, you may recommend additional screening tests (Ultrasoun d or MRI) as these tests may add significant information. A negative radiographic report should not delay biopsy if a dominant or clinically suspicious mass is present. Up to ten percent of cancers are not identified on mammography. A negative report may reinforce clinical impression. Adenosis and dense breasts may obscure an underlying neoplasm. False positive reports average 6 to 10%. Patient will receive a letter notifying them of these results.
== END 2024-12-05 01:05 ==
LOC: DI 00:46
PROVIDERS: PCP Family Medicine; Visit Provider Obstetrics & Gynecology
DX: Z12.31 Encounter for screening mammogram for malignant neoplasm of breast (principal); R92.343 Mammographic extreme density, bilateral breasts; D24.1 Benign neoplasm of right breast
CPT/HCPCS: 76642; 77063; 77067

== ENCOUNTER 2025-01-02 10:52 | Outpatient (CLI) | payer OTHER, SELFPAY ==
[2025-01-04 12:15] LABS: TB Interpretation Negative (Negative); TB1 Ag minus Nil 0.03 IU/mL; TB2 Ag minus Nil 0.02 IU/mL
[2025-01-09 15:58] LABS: Polio 1 Titer >1:128; Polio 3 Titer >1:128
== END 2025-01-02 10:53 | disposition home or self-care (01) ==
LOC: LBO 10:52
PROVIDERS: PCP Family Medicine; Visit Provider Family Medicine
DX: Z01.84 Encounter for antibody response examination (principal)
CPT/HCPCS: 36415; 86480; 86658

== ENCOUNTER 2025-06-12 00:08 | Outpatient (CLI) | payer OTHER, SELFPAY ==
--- NOTE | 2025-06-12 | DI.MAMMO_ITS ---
Exam(s) MG MAMMO DIAGNOSTIC UNI US BREAST RT COMPLETE EXAM: MG MAMMO DIAGNOSTIC UNI and U/S breast RT complete CLINICAL HISTORY: BREAST NODULE, N63.0, RT ABNL MAMMO, 6 MO F/U. TECHNIQUE: Craniocaudal and mediolateral oblique Full Field Digital Mammography views of the right breast with Computer Aided Diagnosis followed by Tomosynthesis and complete right breast ultrasound. All 4 quadrants, the right axilla and right retroareolar region were evaluated sonographically. COMPARISON: Comparison is made with prior examinations. FINDINGS: Mammography/Tomosynthesis: Masses/Architectural Distortion: The previously seen asymmetric density in the outer right breast on the craniocaudad view is not present on the current examination. There are no areas of architectural distortion seen. No suspicious masses are seen mammographically. Microcalcifictions: No suspicious pleomorphic-type are seen. Skin Thickening/Nipple Retraction: None. Complete right breast US: Echotexture: Normal appearance of the glandular tissue. Shadowing: No suspicious foci. Cyst: None. Solid lesions: In the retroareolar region of the right breast, there is a well- circumscribed hypoechoic ovoid nodule at the 10 o'clock position 1 cm from the nipple. This may represent a benign lesion such as a fibroadenoma. Ductal dilation: None. IMPRESSION: 1. No definite evidence for malignancy at this time. There is a well- circumscribed hypoechoic nodule at the 10 o'clock position of the right breast. 2. A six-month follow-up right mammogram and ultrasound are requested for re- evaluation. 3. The findings were discussed with the patient on the date of the examination. BI-RADS Category 3 - 6 month - Probably Benign Finding: Recommend follow-up imaging in 6 months Breast Density - Category D - The breast are extremely dense, which lowers the sensitivity of the mammography. Breast density Category C or D implies that the patient has dense breast tissue. Dense breast tissue can make it harder to find cancer on a mammogram. Dense breast tissue is also associated with an increased risk of breast cancer. This information about the result of the mammogram report was provided to the patient to raise their awareness. Use this report when you speak with the patient about their risks for breast cancer, which includes their family history. At that time, you may recommend additional screening tests (Ultrasound or MRI) as these tests may add significant information. A negative radiographic report should not delay biopsy if a dominant or clinically suspicious mass is present. Up to ten percent of cancers are not identified on mammography. A negative report may reinforce clinical impression. Adenosis and dense breasts may obscure an underlying neoplasm. False positive reports average 6 to 10%. Patient will receive a letter notifying them of these results.
== END 2025-06-12 00:28 ==
LOC: DI 00:08
PROVIDERS: PCP Family Medicine; Visit Provider Obstetrics & Gynecology
DX: Z12.31 Encounter for screening mammogram for malignant neoplasm of breast (principal); N63.22 Unspecified lump in the left breast, upper inner quadrant
CPT/HCPCS: 76642; 77061; 77065; G0279

== ENCOUNTER 2025-06-27 21:48 | Outpatient (REF) | payer OTHER, SELFPAY ==
[2025-06-27 22:07] LABS: Abs Immature Grans 0.01 10^3/uL (0.0-0.06); HCT 38.3 % (36.0-46.0); HGB 12.5 g/dL (11.2-15.7); Immature Grans % 0.1 %; MCH 30.0 pg (27.0-33.0); MCHC 32.6 % (32.0-36.0); MCV 92 fL (80-95); MPV 9.8 fL (8.0-11.0); Platelet Count 253 10^3/uL (130-400); RBC 4.16 10^6/uL (3.93-5.22); RDW 12.4 % (11.7-14.6); RDW-SD 42.5 fL; WBC 6.68 10^3/uL (4.4-10.8)
[2025-06-27 22:46] LABS: ALT 25 U/L (14-59); AST 22 U/L (15-37); Albumin 4.3 g/dL (3.4-5.0); Alkaline Phosphatase 59 U/L (46-116); Anion Gap 8.4 mmol/L (3-11); BUN 13 mg/dL (7-18); Bilirubin, Total 0.4 mg/dL (0.2-1.0); CO2 28.6 mmol/L (21.0-32.0); Calcium 9.3 mg/dL (8.5-10.1); Chloride 100 mmol/L (98-107); Cholesterol 198 mg/dL (<200); Glucose 100 mg/dL (74-106); HDL Cholesterol 103 mg/dL (>or=50); Potassium 4.1 mmol/L (3.5-5.1); Sodium 137 mmol/L (136-145); Total Protein 7.9 g/dL (6.4-8.2)
[2025-06-28 21:07] LABS: HBs Antibody, Quant 235.2 mIU/mL (See Note); Hepatitis B Surface Ab Positive (See Note)
[2025-06-28 21:50] LABS: Hepatitis C Ab w Rflx HCV PCR Negative (Negative)
[2025-06-28 21:52] LABS: HIV-1/2 Ag & Ab Screen Negative (Negative)
[2025-07-01 01:05] LABS: B. miyamotoi PCR Negative (Negative); Babesia divergens/MO-1 Negative (Negative); Ehrlichia muris eauclairensis Negative (Negative)
[2025-07-01 10:15] LABS: Lyme Ab w Rflx to Lyme Confirm Negative (Negative)
== END 2025-06-27 21:49 | disposition home or self-care (01) ==
LOC: LBN 21:48
PROVIDERS: PCP Family Medicine; Visit Provider Student in an Organized Health Care Education/Training Program
DX: Z00.00 Encounter for general adult medical examination without abnormal findings (principal); Z11.59 Encounter for screening for other viral diseases; Z11.4 Encounter for screening for human immunodeficiency virus [HIV]
CPT/HCPCS: 80053; 80061; 86706; 86803; 87389; 87798; 85025; 86618